=== PATIENT | male | born 1940 | race Two or more races ===

== ENCOUNTER 2016-09-07 21:22 | Inpatient (IN) | payer MEDICARE ==
[~2016-09-07] VITALS: Ht 162.6 cm; Wt 54.0 kg
[2016-09-07] MEDS ORDERED: SODIUM CHLORIDE 0.9% 1,000 ML IVB ONE (22:07)
[2016-09-07] MEDS ORDERED: ONDANSETRON HCL 4 MG/2 ML VIAL IV ONE (22:15)
[2016-09-07] MEDS ORDERED: PANTOPRAZOLE SODIUM 80 MG in SODIUM CHL 0.9% 60 ML IV ONE (22:15)
[2016-09-07] MEDS ORDERED: PANTOPRAZOLE SODIUM 40 MG/10 ML VIAL IV ONE (22:15)
[2016-09-07 22:27] LABS: DEFINITIVE VIEW TRANSMISSION; Hemoglobin 13.1 g/dL (13.5-17.5); Mean Corpuscular Hemoglobin 30.6 pg (28.0-32.0); Mean Corpuscular Hgb Conc. 32.6 g/dL (32.0-36.0); Mean Platelet Volume 10.3 fL (7.4-10.4); Platelet Count (auto) 154 10^3/uL (140-450); Red Cell Distribution Width 16.2 % (11.6-16.0); SUSPECT VIEW TRANSMISSION
[2016-09-07 22:42] LABS: Metamyelocytes % 0; Myelocytes % 0; Promyelocytes % 0; Reactive Lymphocytes 0; White Blood Cell 34.6 10^3/uL (4.4-10.8)
[2016-09-07] MEDS ORDERED: LACTATED RINGER'S 500 ML IV ONE (22:45)
[2016-09-07] MEDS ORDERED: LACTATED RINGER'S 1,000 ML IV ONE (22:45)
[2016-09-07 22:47] LABS: Albumin 3.2 g/dL (3.4-5.0); Alkaline Phosphatase 103 U/L (45-117); Amylase 64 U/L (25-115); Anion Gap 14 (5-15); Aspartate Aminotransferase 41 U/L (15-37); BUN/Creatinine Ratio 17.1; Bilirubin, Total 0.3 mg/dL (0.2-1.0); Blood Urea Nitrogen 24 mg/dL (7-18); Calcium 8.9 mg/dL (8.5-10.1); Carbon Dioxide 17 mmol/L (21-32); Chloride 109 mmol/L (98-107); GFR African American 63 mL/min; GFR Non-African American 52 mL/min; Glucose 136 mg/dL (74-106); Magnesium 2.7 mg/dL (1.6-2.6); Potassium 4.3 mmol/L (3.5-5.1); Sodium 140 mmol/L (136-145); Total Protein 6.6 g/dL (6.4-8.2)
[2016-09-07 22:55] LABS: INR 1.11 (0.9-1.15); Partial Thromboplastin Time 23.8 sec (22.64-33.71)
[2016-09-07 23:02] LABS: Hypersegmented Neutrophils Present; Platelet Estimate Adequate
[2016-09-07 23:03] LABS: Giant Platelets Few; Stomatocytes Few
[2016-09-07 23:24] LABS: Lactic Acid w/Reflex 4.9 mmol/L (0.4-2.0)
[2016-09-07 23:25] LABS: REFLEX LACTIC ACID YES OR NO YES
[2016-09-07 23:58] LABS: Hematocrit 34.5 % (41.0-53.0); Hemoglobin 10.9 g/dL (13.5-17.5)
[2016-09-08] VITALS (51 sets, daily range): BP systolic 68–175; BP diastolic 38–120
[2016-09-08] MEDS ORDERED: LACTATED RINGER'S 1,000 ML IV ONE (00:45)
[2016-09-08] MEDS ORDERED: NITROGLYCERIN 0.4 MG SL TAB SL PRN (02:15)
[2016-09-08] MEDS ORDERED: ONDANSETRON HCL 4 MG/2 ML VIAL IV PRN (02:15)
[2016-09-08] MEDS ORDERED: PIPERACILLIN-TAZOB 3.375GM 100 ML IV ONE (02:15)
[2016-09-08] MEDS ORDERED: MORPHINE SULF INJ 2 MG/ML SYRINGE 1ML IV PRN ×2 (02:15)
[2016-09-08] MEDS ORDERED: LACTATED RINGER'S 1,000 ML IV SCH (02:15)
[2016-09-08] MEDS ORDERED: PANTOPRAZOLE SODIUM 80 MG in SODIUM CHL 0.9% 60 ML IV SCH (02:15)
[2016-09-08] MEDS ORDERED: PHENYLEPHRINE IV 250 ML IV ONE (03:23)
[2016-09-08] MEDS ORDERED: PHENYLEPHRINE INJ 20 MG in SODIUM CHL 0.9% 248 ML IV ONE (03:30)
[2016-09-08 03:40] LABS: Hematocrit 27.6 % (41.0-53.0); Hemoglobin 9.1 g/dL (13.5-17.5)
[2016-09-08 05:03] LABS: Urine Bilirubin Negative (Negative); Urine Blood Negative /uL (Negative); Urine Color Yellow (Yellow); Urine Glucose Normal (Normal); Urine Ketone Negative (Negative); Urine Nitrite Negative (Negative); Urine RBC <1 /hpf (0 - 3); Urine Urobilinogen Normal (Negative); Urine pH 5.5 (5.0-8.0)
[2016-09-08] MEDS ORDERED: OCTREOTIDE ACETATE 500 MCG in SODIUM CHL 0.9% 99 ML IV SCH ×4 (08:00)
[2016-09-08] MEDS ORDERED: NOREPINEPHRINE BITARTRATE 250 ML IV SCH (08:00)
[2016-09-08] MEDS: NOREPINEPHRINE BITARTRATE 250 ML IV SCH ×3 (08:00→16:38)
[2016-09-08] MEDS ORDERED: OCTREOTIDE ACETATE 100 MCG in SODIUM CHL 0.9% 50 ML IV ONE (08:00)
[2016-09-08] MEDS: LACTATED RINGER'S 1,000 ML IV SCH ×2 (08:38→17:48)
[2016-09-08] MEDS: PIPERACILLIN-TAZOB 2.25GM 50 ML IV SCH ×3 (09:03→17:47)
[2016-09-08] MEDS: PANTOPRAZOLE SODIUM 80 MG in SODIUM CHL 0.9% 60 ML IV SCH ×2 (10:00→19:30)
[2016-09-08] MEDS ORDERED: diphenhdrAMINE HCL 50 MG/1 ML VL ONE (10:31)
[2016-09-08] MEDS ORDERED: FLUMAZENIL 0.1 MG/ML INJ 10ML MDV IV ONE (10:31)
[2016-09-08] MEDS ORDERED: NALOXONE HCL 0.4 MG/ML VIAL ONE (10:31)
[2016-09-08] MEDS ORDERED: EPINEPHrine HCL 1 MG/10 ML SYRG ONE (10:31)
[2016-09-08] MEDS ORDERED: BENZOCAINE (DENTAL) 20 % SPRAY 60ML MT ONE (10:31)
[2016-09-08] MEDS ORDERED: LIDOCAINE VISCOUS 2% 15ML UD ONE (10:31)
[2016-09-08] MEDS ORDERED: MIDAZOLAM HCL 5 MG/ML-1ML VIAL ONE (10:31)
[2016-09-08] MEDS ORDERED: SODIUM CHLORIDE LOCK 0 ML ONE (10:31)
[2016-09-08] MEDS ORDERED: fentaNYL CITRATE 100 MCG/2 ML VL ONE (10:32)
[2016-09-08] MEDS ORDERED: SODIUM CHLORIDE LOCK 10 ML ONE (10:32)
[2016-09-08 11:51] LABS: DEFINITIVE VIEW TRANSMISSION; Hematocrit 23.5 % (41.0-53.0); Hemoglobin 7.7 g/dL (13.5-17.5); Mean Corpuscular Hemoglobin 29.5 pg (28.0-32.0); Mean Corpuscular Hgb Conc. 32.8 g/dL (32.0-36.0); Mean Corpuscular Volume 89.9 fL (80.0-100.0); Mean Platelet Volume 10.3 fL (7.4-10.4); Platelet Count (auto) 67 10^3/uL (140-450); Red Cell Distribution Width 17.2 % (11.6-16.0); SUSPECT VIEW TRANSMISSION; White Blood Cell 17.3 10^3/uL (4.4-10.8)
[2016-09-08] MEDS ORDERED: METOCLOPRAMIDE HCL 5MG/ml INJ 2ml VIAL ONE (12:23)
[2016-09-08] MEDS ORDERED: VASOPRESSIN 50 UNITS in SODIUM CHL 0.9% 247.5 ML IV SCH (12:30)
[2016-09-08] MEDS ORDERED: METOCLOPRAMIDE HCL 5MG/ml INJ 2ml VIAL IV ONE (12:30)
[2016-09-08] MEDS: VASOPRESSIN 50 UNITS in SODIUM CHL 0.9% 247.5 ML IV SCH (12:45)
[2016-09-08 12:53] LABS: Metamyelocytes % 0; Myelocytes % 0; Promyelocytes % 0; Reactive Lymphocytes 0
[2016-09-08 13:43] LABS: Burr Cells FEW; Giant Platelets Few; Ovalocytes FEW; Platelet Estimate Decreased
[2016-09-08 14:35] LABS: REFLEX LACTIC ACID YES OR NO NO
[2016-09-08] MEDS ORDERED: ATOR20TA50 PO (16:29)
[2016-09-08] MEDS ORDERED: CLOP75TA28 PO (16:29)
[2016-09-08 17:59] LABS: Hematocrit 21.6 % (41.0-53.0); Hemoglobin 7.2 g/dL (13.5-17.5)
[2016-09-08 18:13] LABS: Calcium 7.1 mg/dL (8.5-10.1); Potassium 4.9 mmol/L (3.5-5.1)
[2016-09-09] VITALS (90 sets, daily range): BP systolic 82–165; BP diastolic 31–99
[2016-09-09] MEDS: NOREPINEPHRINE BITARTRATE 250 ML IV SCH ×3 (00:09→21:59)
[2016-09-09] MEDS: PIPERACILLIN-TAZOB 2.25GM 50 ML IV SCH ×4 (00:12→18:00)
[2016-09-09] MEDS ORDERED: LACTATED RINGER'S 1,000 ML IV SCH (02:15)
[2016-09-09 02:41] LABS: DEFINITIVE VIEW TRANSMISSION; Hematocrit 31.2 % (41.0-53.0); Hemoglobin 10.4 g/dL (13.5-17.5); Mean Corpuscular Hemoglobin 29.7 pg (28.0-32.0); Mean Corpuscular Hgb Conc. 33.5 g/dL (32.0-36.0); Mean Corpuscular Volume 88.8 fL (80.0-100.0); Mean Platelet Volume 9.9 fL (7.4-10.4); Red Cell Distribution Width 16.4 % (11.6-16.0); SUSPECT VIEW TRANSMISSION; White Blood Cell 23.3 10^3/uL (4.4-10.8)
[2016-09-09 02:45] LABS: Platelet Count (auto) 140 10^3/uL (140-450)
[2016-09-09 02:46] LABS: Metamyelocytes % 0; Myelocytes % 0; Promyelocytes % 0; Reactive Lymphocytes 0
[2016-09-09 03:10] LABS: BUN/Creatinine Ratio 15.9; Bilirubin, Total 1.1 mg/dL (0.2-1.0); Calcium 7.1 mg/dL (8.5-10.1); Potassium 4.8 mmol/L (3.5-5.1); Total Protein 4.1 g/dL (6.4-8.2)
[2016-09-09 03:11] LABS: Albumin 2.2 g/dL (3.4-5.0)
[2016-09-09 03:20] LABS: Platelet Estimate Adequate
[2016-09-09 03:21] LABS: Giant Platelets Few
[2016-09-09] MEDS: PANTOPRAZOLE SODIUM 80 MG in SODIUM CHL 0.9% 60 ML IV SCH (05:45)
[2016-09-09] MEDS ORDERED: VANCOMYCIN PER PHARMACY 0 MG IV SCH (09:00)
[2016-09-09] MEDS: VANCOMYCIN 1GM/250ML D5W 250 ML IV SCH (10:34)
[2016-09-09] MEDS: LACTATED RINGER'S 1,000 ML IV SCH ×2 (10:35→21:58)
[2016-09-09] MEDS: VASOPRESSIN 50 UNITS in SODIUM CHL 0.9% 247.5 ML IV SCH (10:35)
[2016-09-09] MEDS ORDERED: TAMSULOSIN HYDROCHLORIDE 0.4 MG CAP PO ONE (13:15)
[2016-09-09] MEDS: HYDROmorphone HCL 2 MG/ML VL IV PRN ×3 (13:59→20:44)
[2016-09-09] MEDS ORDERED: HYDROmorphone HCL 2 MG/ML VL ONE (15:32)
[2016-09-09] MEDS ORDERED: HYDROmorphone HCL 2 MG/ML VL IV ONE (15:45)
[2016-09-09] MEDS: TAMSULOSIN HYDROCHLORIDE 0.4 MG CAP PO SCH (18:00)
[2016-09-09] MEDS: PANTOPRAZOLE SODIUM 40 MG/10 ML VIAL IV SCH (21:58)
[2016-09-10] VITALS (86 sets, daily range): BP systolic 82–123; BP diastolic 37–92
[2016-09-10] MEDS: PIPERACILLIN-TAZOB 2.25GM 50 ML IV SCH ×5 (00:02→23:59)
[2016-09-10] MEDS: HYDROmorphone HCL 2 MG/ML VL IV PRN ×4 (02:54→20:39)
[2016-09-10 05:48] LABS: DEFINITIVE VIEW TRANSMISSION; Hematocrit 25.3 % (41.0-53.0); Hemoglobin 8.6 g/dL (13.5-17.5); Mean Corpuscular Hemoglobin 30.1 pg (28.0-32.0); Mean Corpuscular Hgb Conc. 33.8 g/dL (32.0-36.0); Mean Platelet Volume 9.5 fL (7.4-10.4); Platelet Count (auto) 88 10^3/uL (140-450); Red Cell Distribution Width 16.2 % (11.6-16.0); SUSPECT VIEW TRANSMISSION; White Blood Cell 15.9 10^3/uL (4.4-10.8)
[2016-09-10 05:53] LABS: Metamyelocytes % 0; Myelocytes % 0; Promyelocytes % 0; Reactive Lymphocytes 0
[2016-09-10 06:03] LABS: BUN/Creatinine Ratio 11.8; Calcium 7.7 mg/dL (8.5-10.1)
[2016-09-10 06:06] LABS: Bilirubin, Total 0.5 mg/dL (0.2-1.0); Total Protein 4.1 g/dL (6.4-8.2)
[2016-09-10 06:43] LABS: Platelet Estimate Decreased
[2016-09-10 06:48] LABS: Basophilic Stippling FEW
[2016-09-10 06:49] LABS: Ovalocytes FEW; Stomatocytes Few
[2016-09-10 06:50] LABS: Giant Platelets Few; Large Platelets FEW
[2016-09-10] MEDS: LACTATED RINGER'S 1,000 ML IV SCH (08:07)
[2016-09-10] MEDS: NOREPINEPHRINE BITARTRATE 250 ML IV SCH (08:52)
[2016-09-10] MEDS: VANCOMYCIN 1GM/250ML D5W 250 ML IV SCH (10:52)
[2016-09-10] MEDS: PANTOPRAZOLE SODIUM 40 MG/10 ML VIAL IV SCH ×2 (10:52→20:41)
[2016-09-10] MEDS ORDERED: HYDROmorphone HCL 2 MG/ML VL IV ONE (15:00)
[2016-09-10 15:33] LABS: Hematocrit 25.9 % (41.0-53.0); Hemoglobin 8.5 g/dL (13.5-17.5)
[2016-09-10] MEDS ORDERED: ALBUMIN 25% 50 ML IV ONE (15:45)
[2016-09-10] MEDS: TAMSULOSIN HYDROCHLORIDE 0.4 MG CAP PO SCH (18:11)
[2016-09-10] MEDS: HYDROcodone-ACET 5/325MG TAB PO PRN (18:11)
[2016-09-11] VITALS (63 sets, daily range): BP systolic 89–130; BP diastolic 38–63
[2016-09-11] MEDS: NOREPINEPHRINE BITARTRATE 250 ML IV SCH (00:01)
[2016-09-11] MEDS ORDERED: LACTATED RINGER'S 1,000 ML IV SCH (02:15)
[2016-09-11] MEDS: HYDROcodone-ACET 5/325MG TAB PO PRN ×2 (02:18→08:59)
[2016-09-11 04:08] LABS: DEFINITIVE VIEW TRANSMISSION; Hematocrit 24.6 % (41.0-53.0); Hemoglobin 8.2 g/dL (13.5-17.5); Mean Corpuscular Hemoglobin 30.1 pg (28.0-32.0); Mean Corpuscular Hgb Conc. 33.1 g/dL (32.0-36.0); Mean Corpuscular Volume 90.8 fL (80.0-100.0); Mean Platelet Volume 10.9 fL (7.4-10.4); Platelet Count (auto) 96 10^3/uL (140-450); Red Cell Distribution Width 16.3 % (11.6-16.0); SUSPECT VIEW TRANSMISSION; White Blood Cell 9.2 10^3/uL (4.4-10.8)
[2016-09-11 04:26] LABS: Albumin 2.1 g/dL (3.4-5.0); BUN/Creatinine Ratio 5.9; Calcium 7.6 mg/dL (8.5-10.1); Potassium 3.6 mmol/L (3.5-5.1)
[2016-09-11 04:28] LABS: Metamyelocytes % 0; Myelocytes % 0; Promyelocytes % 0; Reactive Lymphocytes 0
[2016-09-11 04:32] LABS: Bilirubin, Total 0.5 mg/dL (0.2-1.0); Total Protein 4.4 g/dL (6.4-8.2)
[2016-09-11] MEDS: PIPERACILLIN-TAZOB 2.25GM 50 ML IV SCH ×3 (04:51→17:48)
[2016-09-11 05:11] LABS: Burr Cells FEW; Hypersegmented Neutrophils Present; Ovalocytes FEW; Platelet Estimate Decreased
[2016-09-11 05:12] LABS: Anisocytosis Moderate
[2016-09-11] MEDS: VANCOMYCIN 1GM/250ML D5W 250 ML IV SCH (10:39)
[2016-09-11] MEDS: PANTOPRAZOLE SODIUM 40 MG/10 ML VIAL IV SCH ×2 (10:39→22:47)
[2016-09-11] MEDS ORDERED: ALBUTEROL SULF 2.5 MG/0.5ML(0.5%) NEB SOLN NEB PRN (11:00)
[2016-09-11] MEDS ORDERED: ALBUTEROL SULF 2.5 MG/0.5ML(0.5%) NEB SOLN ONE (11:05)
[2016-09-11] MEDS: HYDROmorphone HCL 2 MG/ML VL IV PRN ×3 (11:37→20:45)
[2016-09-11] MEDS ORDERED: FUROSEMIDE 20 MG/2 ML VIAL ONE (14:23)
[2016-09-11] MEDS: TAMSULOSIN HYDROCHLORIDE 0.4 MG CAP PO SCH (17:49)
[2016-09-12] VITALS (7 sets, daily range): BP systolic 102–132; BP diastolic 56–74
[2016-09-12] MEDS: PIPERACILLIN-TAZOB 2.25GM 50 ML IV SCH ×4 (00:24→18:37)
[2016-09-12] MEDS: HYDROmorphone HCL 2 MG/ML VL IV PRN ×4 (01:18→21:13)
[2016-09-12 05:31] LABS: DEFINITIVE VIEW TRANSMISSION; Hematocrit 25.2 % (41.0-53.0); Hemoglobin 8.4 g/dL (13.5-17.5); Mean Corpuscular Hemoglobin 29.6 pg (28.0-32.0); Mean Corpuscular Hgb Conc. 33.3 g/dL (32.0-36.0); Mean Corpuscular Volume 89.1 fL (80.0-100.0); Mean Platelet Volume 9.4 fL (7.4-10.4); Platelet Count (auto) 108 10^3/uL (140-450); Red Cell Distribution Width 15.8 % (11.6-16.0); SUSPECT VIEW TRANSMISSION; White Blood Cell 6.2 10^3/uL (4.4-10.8)
[2016-09-12 05:41] LABS: Metamyelocytes % 0; Myelocytes % 0; Promyelocytes % 0; Reactive Lymphocytes 0
[2016-09-12 05:52] LABS: Potassium 3.4 mmol/L (3.5-5.1)
[2016-09-12 05:56] LABS: Albumin 2.1 g/dL (3.4-5.0); BUN/Creatinine Ratio 3.5; Calcium 7.9 mg/dL (8.5-10.1)
[2016-09-12 06:00] LABS: Bilirubin, Total 0.6 mg/dL (0.2-1.0); Total Protein 4.5 g/dL (6.4-8.2)
[2016-09-12 06:02] LABS: Hypersegmented Neutrophils Present
[2016-09-12 06:03] LABS: Anisocytosis Moderate; Large Platelets FEW; Platelet Estimate Decrea
[2016-09-12 06:05] LABS: Ovalocytes FEW
[2016-09-12] MEDS: PANTOPRAZOLE SODIUM 40 MG/10 ML VIAL IV SCH (09:45)
[2016-09-12] MEDS ORDERED: FUROSEMIDE 20 MG/2 ML VIAL IV SCH (10:00)
[2016-09-12] MEDS ORDERED: PANTOPRAZOLE 40 MG TAB PO ONE (12:00)
[2016-09-12] MEDS: TAMSULOSIN HYDROCHLORIDE 0.4 MG CAP PO SCH (18:37)
[2016-09-12] MEDS: PANTOPRAZOLE 40 MG TAB PO SCH (22:44)
[2016-09-13] VITALS: BP 122/65
[2016-09-13] MEDS: PIPERACILLIN-TAZOB 2.25GM 50 ML IV SCH ×3 (00:15→11:27)
[2016-09-13 04:00] VITALS: BP 107/61
[2016-09-13] MEDS: HYDROmorphone HCL 2 MG/ML VL IV PRN (06:24)
[2016-09-13 07:55] VITALS: BP 118/22
[2016-09-13] MEDS: PANTOPRAZOLE 40 MG TAB PO SCH (10:21)
[2016-09-13 11:00] VITALS: BP 118/72
[2016-09-13 11:56] VITALS: BP 121/65
== END 2016-09-13 15:45 | disposition home or self-care (01) | DRG 380 ==
LOC: ER 21:30 → TELE 21:31 → ICU WEST 09-08 09:15 → DOU IN ICU 09-11 18:22
PROVIDERS: ADMIT Nurse Practitioner; ATTEND Internal Medicine
PROC: 02HV33Z Insertion of Infusion Device into Superior Vena Cava, Percutaneous Approach (ICD-10-PCS; 2016-09-07)
PROC: 0DJ68ZZ Inspection of Stomach, Via Natural or Artificial Opening Endoscopic (ICD-10-PCS; 2016-09-08)
PROC: 0W3P8ZZ Control Bleeding in Gastrointestinal Tract, Via Natural or Artificial Opening Endoscopic (ICD-10-PCS; 2016-09-08)
PROC: 30233R1 Transfusion of Nonautologous Platelets into Peripheral Vein, Percutaneous Approach (ICD-10-PCS; 2016-09-08)
PROC: 30233N1 Transfusion of Nonautologous Red Blood Cells into Peripheral Vein, Percutaneous Approach (ICD-10-PCS; 2016-09-08)
PROC: 02HV33Z Insertion of Infusion Device into Superior Vena Cava, Percutaneous Approach (ICD-10-PCS; 2016-09-08)
PROC: 3E0G8GC Introduction of Other Therapeutic Substance into Upper GI, Via Natural or Artificial Opening Endoscopic (ICD-10-PCS; principal; 2016-09-08 09:45)
DX: K22.11 Ulcer of esophagus with bleeding (principal); N17.0 Acute kidney failure with tubular necrosis; R57.1 Hypovolemic shock; J98.11 Atelectasis; E44.0 Moderate protein-calorie malnutrition; R65.10 Systemic inflammatory response syndrome (SIRS) of non-infectious origin without acute organ dysfunction; D72.829 Elevated white blood cell count, unspecified; D69.6 Thrombocytopenia, unspecified; N13.9 Obstructive and reflux uropathy, unspecified; N40.1 Benign prostatic hyperplasia with lower urinary tract symptoms
CPT/HCPCS: 36415; 36430; 36600; 71010; 74176; 80048; 80053; 81001; 82150; 82805; 83605; 83690; 83735; 84484; 85007; 85014; 85018; 85027; 85610; 85730; 86850; 86900; 86901; 86920; 87040; 87081; 93005; 96361; 96365; 96366; 96367; 96368; 96375; 99291; C9113; J2250; J2405; J2543; J3490

== ENCOUNTER → 2016-12-15 | Day surgery (SDC) | payer MEDICARE ==
[2016-12-11 12:22] LABS: INR 1.05 (0.9-1.15); Partial Thromboplastin Time 31.5 sec (22.64-33.71); Prothrombin Time 11.4 sec (9.37-12.3)
[2016-12-11 12:25] LABS: Basophils # (auto) 0 uL; Basophils % (auto) 0.5 % (0.0-2.0); CONDITION Y; Eosinophils # (auto) 0.1 uL; Eosinophils % (auto) 1.2 % (0.0-7.0); Hematocrit 39.9 % (41.0-53.0); Hemoglobin 13.1 g/dL (13.5-17.5); Lymphocytes # (auto) 1.3 uL; Lymphocytes % (auto) 22.7 % (10.0-50.0); Mean Corpuscular Hemoglobin 30.3 pg (28.0-32.0); Mean Corpuscular Hgb Conc. 32.8 g/dL (32.0-36.0); Mean Corpuscular Volume 92.4 fL (80.0-100.0); Monocytes # (auto) 0.6 uL; Monocytes % (auto) 9.8 % (0.0-12.0); Neutrophils # (auto) 3.8 uL; Neutrophils % (auto) 65.8 % (37.0-80.0); Platelet Count (auto) 163 10^3/uL (140-450); Red Cell Distribution Width 17.2 % (11.6-16.0); SUSPECT SEE PRINTOUT; White Blood Cell 5.8 10^3/uL (4.4-10.8)
[~2016-12-15] VITALS: Ht 162.6 cm; Wt 46.3 kg
[~2016-12-15] MED LIST: LIDOCAINE VISCOUS 2% 15ML UD ONE; MIDAZOLAM HCL 5 MG/ML-1ML VIAL ONE; PANT40TA2 PO; SODIUM CHLORIDE LOCK 10 ML ONE; diphenhdrAMINE HCL 50 MG/1 ML VL ONE; fentaNYL CITRATE 100 MCG/2 ML VL ONE
[2016-12-15 11:14] VITALS: BP 119/64
== END | disposition home or self-care (01) ==
LOC: GI 08:57
PROVIDERS: ATTEND Internal Medicine Gastroenterology
DX: K44.9 Diaphragmatic hernia without obstruction or gangrene (principal); F17.210 Nicotine dependence, cigarettes, uncomplicated
CPT/HCPCS: 36415; 43239; 43248; 85025; 85610; 85730; J2250; J3010; J7030

== ENCOUNTER 2016-12-18 12:55 | Inpatient (IN) | payer MEDICARE ==
[2016-12-18] VITALS (10 sets, daily range): BP systolic 91–106; BP diastolic 36–62
[~2016-12-18] VITALS: Ht 165.1 cm; Wt 48.9 kg
[~2016-12-18 12:55] MED LIST changes: -LIDOCAINE VISCOUS 2% 15ML UD ONE; -MIDAZOLAM HCL 5 MG/ML-1ML VIAL ONE; -SODIUM CHLORIDE LOCK 10 ML ONE; -diphenhdrAMINE HCL 50 MG/1 ML VL ONE; -fentaNYL CITRATE 100 MCG/2 ML VL ONE
[2016-12-18] MEDS ORDERED: SODIUM CHLORIDE 0.9% 1,000 ML IV ONE ×4 (13:30→15:30)
[2016-12-18] MEDS ORDERED: ALBUTEROL SULF 2.5 MG/0.5ML(0.5%) NEB SOLN NEB ONE (13:30)
[2016-12-18] MEDS ORDERED: PANTOPRAZOLE 40 MG/10 ML VIAL IV ONE (13:30)
[2016-12-18] MEDS ORDERED: IPRATROPIUM BROM 0.5 MG/2.5ML INH SOL NEB ONE (13:30)
[2016-12-18 14:15] LABS: Basophils # (auto) 0 uL; Basophils % (auto) 0.2 % (0.0-2.0); CONDITION Y; Eosinophils # (auto) 0 uL; Eosinophils % (auto) 0.1 % (0.0-7.0); Hematocrit 26.7 % (41.0-53.0); Hemoglobin 8.9 g/dL (13.5-17.5); Lymphocytes # (auto) 0.9 uL; Lymphocytes % (auto) 6.1 % (10.0-50.0); Mean Corpuscular Hemoglobin 30.4 pg (28.0-32.0); Mean Corpuscular Hgb Conc. 33.1 g/dL (32.0-36.0); Mean Corpuscular Volume 91.6 fL (80.0-100.0); Mean Platelet Volume 10.3 fL (7.4-10.4); Monocytes # (auto) 0.6 uL; Monocytes % (auto) 4.4 % (0.0-12.0); Neutrophils # (auto) 13.3 uL; Neutrophils % (auto) 89.2 % (37.0-80.0); Platelet Count (auto) 182 10^3/uL (140-450); SUSPECT SEE PRINTOUT; White Blood Cell 14.9 10^3/uL (4.4-10.8)
[2016-12-18 14:26] LABS: INR 1.08 (0.9-1.15); Partial Thromboplastin Time 23.5 sec (22.64-33.71); Prothrombin Time 11.8 sec (9.37-12.3)
[2016-12-18 14:34] LABS: Albumin 2.7 g/dL (3.4-5.0); Alkaline Phosphatase 74 U/L (45-117); Anion Gap 9 (5-15); Aspartate Aminotransferase 14 U/L (15-37); BUN/Creatinine Ratio 45.8; Bilirubin, Total 0.3 mg/dL (0.2-1.0); Blood Urea Nitrogen 55 mg/dL (7-18); Carbon Dioxide 23 mmol/L (21-32); Chloride 111 mmol/L (98-107); GFR African American 76 mL/min; GFR Non-African American 63 mL/min; Glucose 103 mg/dL (74-106); Potassium 4.3 mmol/L (3.5-5.1); Sodium 143 mmol/L (136-145); Total Protein 5.9 g/dL (6.4-8.2)
[2016-12-18 14:37] LABS: B-Type Natriuretic Peptide 20.36 pg/mL (0-100)
[2016-12-18] MEDS ORDERED: cefTRIAXone 1GM/50ML D5W 50 ML IV ONE (14:45)
[2016-12-18 14:47] LABS: Temperature: 21.9 C (20.0-25.0)
[2016-12-18] MEDS ORDERED: AZITHROMYCIN 500MG/D5W 250ML 250 ML IV ONE ×2 (15:00)
[2016-12-18] MEDS ORDERED: PANTOPRAZOLE 80 MG in SODIUM CHL 0.9% 60 ML IV SCH (15:15)
[2016-12-18] MEDS ORDERED: NITROGLYCERIN 0.4 MG SL TAB SL PRN (15:15)
[2016-12-18] MEDS ORDERED: MORPHINE SULF INJ 2 MG/ML SYRINGE 1ML IV PRN (15:15)
[2016-12-18] MEDS ORDERED: ONDANSETRON HCL 4 MG/2 ML VIAL IV ONE (15:45)
[2016-12-18] MEDS ORDERED: HYDROmorphone HCL 2 MG/ML VL IV ONE (16:15)
[2016-12-18] MEDS ORDERED: LIDOCAINE 1% HCL (LOCAL ANESTH.) INJ 20ML MDV ONE (16:16)
[2016-12-18] MEDS ORDERED: ALBUTEROL SULF 2.5 MG/0.5ML(0.5%) NEB SOLN NEB PRN (16:30)
[2016-12-18] MEDS ORDERED: LIDOCAINE 1% HCL (LOCAL ANESTH.) INJ 20ML MDV IJ ONE (16:45)
[2016-12-18] MEDS: NOREPINEPHRINE BITARTRATE 250 ML IV SCH (18:03)
[2016-12-18] MEDS: IPRATROPIUM BROM 0.5 MG/2.5ML INH SOL NEB SCH (18:45)
[2016-12-18] MEDS: ALBUTEROL SULF 2.5 MG/0.5ML(0.5%) NEB SOLN NEB SCH (18:46)
[2016-12-18 19:00] LABS: Hematocrit 21.2 % (41.0-53.0)
[2016-12-18 19:24] LABS: Hemoglobin 6.8 g/dL (13.5-17.5)
[2016-12-18 19:50] LABS: Urine RBC None Seen /hpf (0 - 3)
[2016-12-18 20:08] LABS: Urine Bilirubin Negative (Negative); Urine Blood Negative /uL (Negative); Urine Color Yellow (Yellow); Urine Glucose Normal (Normal); Urine Ketone Negative (Negative); Urine Nitrite Negative (Negative); Urine Squamous Epithelial Cell FEW /hpf (<5); Urine Urobilinogen Normal (Negative)
[2016-12-18] MEDS: PANTOPRAZOLE 40 MG/10 ML VIAL IV SCH (22:06)
[2016-12-18] MEDS: MORPHINE SULFATE 4 MG/ML SYRG IV PRN (22:06)
[2016-12-19] VITALS (73 sets, daily range): BP systolic 90–159; BP diastolic 41–94
[2016-12-19] MEDS: NOREPINEPHRINE BITARTRATE 250 ML IV SCH ×2 (00:04→05:24)
[2016-12-19] MEDS: IPRATROPIUM BROM 0.5 MG/2.5ML INH SOL NEB SCH ×4 (00:59→18:35)
[2016-12-19] MEDS: ALBUTEROL SULF 2.5 MG/0.5ML(0.5%) NEB SOLN NEB SCH ×4 (00:59→18:35)
[2016-12-19 01:23] LABS: Hematocrit 19.7 % (41.0-53.0)
[2016-12-19 01:28] LABS: Hemoglobin 6.3 g/dL (13.5-17.5)
[2016-12-19] MEDS: MORPHINE SULFATE 4 MG/ML SYRG IV PRN ×3 (02:14→11:59)
[2016-12-19] MEDS ORDERED: SODIUM CHLORIDE LOCK 10 ML ONE (07:55)
[2016-12-19] MEDS ORDERED: MIDAZOLAM HCL 5 MG/ML-1ML VIAL ONE (07:56)
[2016-12-19] MEDS ORDERED: diphenhdrAMINE HCL 50 MG/1 ML VL ONE (07:56)
[2016-12-19] MEDS ORDERED: LIDOCAINE VISCOUS 2% 15ML UD ONE (07:56)
[2016-12-19] MEDS ORDERED: fentaNYL CITRATE 100 MCG/2 ML VL ONE (07:56)
[2016-12-19] MEDS: PANTOPRAZOLE 40 MG/10 ML VIAL IV SCH ×2 (10:24→22:07)
[2016-12-19] MEDS: cefTRIAXone 1GM/50ML D5W 50 ML IV SCH (13:59)
[2016-12-19 14:32] LABS: CONDITION Y; DEFINITIVE SEE PRINTOUT; Hematocrit 29.3 % (41.0-53.0); Hemoglobin 9.8 g/dL (13.5-17.5); Mean Corpuscular Hgb Conc. 33.3 g/dL (32.0-36.0); Mean Corpuscular Volume 90.1 fL (80.0-100.0); Mean Platelet Volume 9.9 fL (7.4-10.4); Platelet Count (auto) 112 10^3/uL (140-450); Red Cell Distribution Width 16.6 % (11.6-16.0); SUSPECT SEE PRINTOUT; White Blood Cell 22.5 10^3/uL (4.4-10.8)
[2016-12-19 14:49] LABS: BUN/Creatinine Ratio 37.6; Potassium 4.9 mmol/L (3.5-5.1)
[2016-12-19 14:53] LABS: Metamyelocytes % 0; Myelocytes % 0; Promyelocytes % 0; Reactive Lymphocytes 0
[2016-12-19] MEDS: AZITHROMYCIN 500MG/D5W 250ML 250 ML IV SCH (15:30)
[2016-12-19 15:46] LABS: Platelet Estimate Decreased
[2016-12-19 15:47] LABS: Anisocytosis Slight; Burr Cells FEW; Giant Platelets Few
[2016-12-19] MEDS: MORPHINE SULF INJ 2 MG/ML SYRINGE 1ML IV PRN ×2 (18:55→23:04)
[2016-12-19] MEDS ORDERED: KETOROLAC TROMETH 30 MG/ML 1ML VIAL IV NR (21:00)
[2016-12-19] MEDS ORDERED: HYDROmorphone HCL 2 MG/ML VL IV ONE (23:15)
[2016-12-20] VITALS (27 sets, daily range): BP systolic 86–133; BP diastolic 38–73
[2016-12-20] MEDS: IPRATROPIUM BROM 0.5 MG/2.5ML INH SOL NEB SCH ×4 (00:27→19:23)
[2016-12-20] MEDS: ALBUTEROL SULF 2.5 MG/0.5ML(0.5%) NEB SOLN NEB SCH ×4 (00:27→19:23)
[2016-12-20] MEDS: MORPHINE SULF INJ 2 MG/ML SYRINGE 1ML IV PRN ×5 (03:51→20:24)
[2016-12-20 03:52] LABS: Basophils # (auto) 0 uL; Basophils % (auto) 0.1 % (0.0-2.0); CONDITION Y; DEFINITIVE SEE PRINTOUT; Eosinophils # (auto) 0.1 uL; Eosinophils % (auto) 0.3 % (0.0-7.0); Hematocrit 26.7 % (41.0-53.0); Hemoglobin 8.9 g/dL (13.5-17.5); Lymphocytes # (auto) 1.1 uL; Lymphocytes % (auto) 6.2 % (10.0-50.0); Mean Corpuscular Hemoglobin 30.4 pg (28.0-32.0); Mean Corpuscular Hgb Conc. 33.2 g/dL (32.0-36.0); Mean Corpuscular Volume 91.4 fL (80.0-100.0); Mean Platelet Volume 10.1 fL (7.4-10.4); Neutrophils # (auto) 13.5 uL; Neutrophils % (auto) 76.4 % (37.0-80.0); Platelet Count (auto) 104 10^3/uL (140-450); Red Cell Distribution Width 17.5 % (11.6-16.0); SUSPECT SEE PRINTOUT; White Blood Cell 17.6 10^3/uL (4.4-10.8)
[2016-12-20 04:19] LABS: BUN/Creatinine Ratio 30.3; Calcium 7.5 mg/dL (8.5-10.1); Potassium 4.8 mmol/L (3.5-5.1)
[2016-12-20] MEDS: cefTRIAXone 1GM/50ML D5W 50 ML IV SCH (09:08)
[2016-12-20] MEDS: AZITHROMYCIN 500MG/D5W 250ML 250 ML IV SCH (10:45)
[2016-12-20] MEDS: PANTOPRAZOLE 40 MG/10 ML VIAL IV SCH ×2 (10:47→22:00)
[2016-12-20] MEDS ORDERED: NICOTINE 21MG/24 HR TOPICAL PATCH TD ONE (14:15)
[2016-12-20] MEDS ORDERED: TEMAZEPAM 15 MG CAP PO PRN (14:15)
[2016-12-20] MEDS ORDERED: ALPRAZolam 0.25 MG TAB PO PRN (14:45)
[2016-12-20] MEDS: TAMSULOSIN HYDROCHLORIDE 0.4 MG CAP PO SCH (20:24)
[2016-12-21] VITALS (50 sets, daily range): BP systolic 79–158; BP diastolic 37–105
[2016-12-21] MEDS: IPRATROPIUM BROM 0.5 MG/2.5ML INH SOL NEB SCH ×5 (01:11→23:59)
[2016-12-21] MEDS: ALBUTEROL SULF 2.5 MG/0.5ML(0.5%) NEB SOLN NEB SCH ×5 (01:11→23:59)
[2016-12-21] MEDS: MORPHINE SULF INJ 2 MG/ML SYRINGE 1ML IV PRN ×3 (02:38→08:25)
[2016-12-21 05:01] LABS: Basophils # (auto) 0 uL; Basophils % (auto) 0.3 % (0.0-2.0); CONDITION Y; DEFINITIVE SEE PRINTOUT; Eosinophils # (auto) 0.1 uL; Eosinophils % (auto) 1.2 % (0.0-7.0); Hematocrit 20.9 % (41.0-53.0); Lymphocytes % (auto) 18.6 % (10.0-50.0); Mean Corpuscular Hgb Conc. 32.9 g/dL (32.0-36.0); Mean Corpuscular Volume 90.9 fL (80.0-100.0); Mean Platelet Volume 9.9 fL (7.4-10.4); Monocytes # (auto) 0.9 uL; Monocytes % (auto) 17.7 % (0.0-12.0); Neutrophils # (auto) 3.2 uL; Neutrophils % (auto) 62.2 % (37.0-80.0); Platelet Count (auto) 85 10^3/uL (140-450); Red Cell Distribution Width 17.2 % (11.6-16.0); SUSPECT SEE PRINTOUT; White Blood Cell 5.2 10^3/uL (4.4-10.8)
[2016-12-21 05:10] LABS: Hemoglobin 6.9 g/dL (13.5-17.5)
[2016-12-21 05:37] LABS: BUN/Creatinine Ratio 23.2; Calcium 7.5 mg/dL (8.5-10.1); Potassium 4.2 mmol/L (3.5-5.1)
[2016-12-21] MEDS ORDERED: MORPHINE SULFATE 4 MG/ML SYRG ONE (08:14)
[2016-12-21] MEDS ORDERED: MIDAZOLAM HCL 5 MG/ML-1ML VIAL ONE (10:17)
[2016-12-21] MEDS ORDERED: SODIUM CHLORIDE LOCK 10 ML ONE (10:17)
[2016-12-21] MEDS ORDERED: EPINEPHrine HCL 1 MG/10 ML SYRG ONE (10:17)
[2016-12-21] MEDS ORDERED: LIDOCAINE VISCOUS 2% 15ML UD ONE (10:17)
[2016-12-21] MEDS ORDERED: diphenhdrAMINE HCL 50 MG/1 ML VL ONE (10:18)
[2016-12-21] MEDS ORDERED: fentaNYL CITRATE 100 MCG/2 ML VL ONE ×2 (10:18→11:04)
[2016-12-21] MEDS ORDERED: NALOXONE HCL 0.4 MG/ML VIAL ONE (10:19)
[2016-12-21] MEDS ORDERED: FLUMAZENIL 0.1 MG/ML INJ 10ML MDV IV ONE (10:19)
[2016-12-21] MEDS ORDERED: FUROSEMIDE 20 MG/2 ML VIAL ONE (10:57)
[2016-12-21] MEDS ORDERED: MIDAZOLAM HCL 1MG/1ML-2 ML VIAL ONE ×2 (11:04→12:11)
[2016-12-21] MEDS ORDERED: ETOMIDATE (2MG/ML) 20ML VIAL IV ONE (11:05)
[2016-12-21] MEDS ORDERED: ROCURONIUM 10MG/ML 10ML VIAL IV ONE (11:05)
[2016-12-21] MEDS ORDERED: GOLYTELY 4L KIT PO ONE (11:45)
[2016-12-21 12:21] LABS: Allen Test Modified; Blood 02Sat 94.3 % (96-100); Blood MetHb 0.3 % (0.0-1.5); HCO3 17.8 mmol/L (22-26.0); HHb 5.7 % (0.0-5.0); MODE VENT - A/C; PCO2 33.8 mmHg (35.0-45.0); PCO2(T) 33.8 mmHg (35.0-45.0); Room 0263D; Sample Type Arterial
[2016-12-21] MEDS ORDERED: MIDAZOLAM HCL 1MG/1ML-2 ML VIAL IV ONE (12:30)
[2016-12-21 12:53] LABS: Hematocrit 33.4 % (41.0-53.0); Hemoglobin 11.2 g/dL (13.5-17.5)
[2016-12-21] MEDS ORDERED: POTASSIUM CHLORIDE 40 MEQ, LIDOCAINE 1% (LOCAL ANESTH.) 4 ML in SODIUM CHL 0.9% 250 ML IV ONE (14:45)
[2016-12-21] MEDS ORDERED: FUROSEMIDE 20 MG/2 ML VIAL IV ONE (14:45)
[2016-12-21] MEDS: NICOTINE 21MG/24 HR TOPICAL PATCH TD SCH (15:34)
[2016-12-21] MEDS: cefTRIAXone 1GM/50ML D5W 50 ML IV SCH (15:34)
[2016-12-21] MEDS: PANTOPRAZOLE 40 MG/10 ML VIAL IV SCH ×2 (15:35→22:11)
[2016-12-21] MEDS ORDERED: SODIUM CHLORIDE 0.9% 500 ML IV ONE (16:15)
[2016-12-21] MEDS ORDERED: NOREPINEPHRINE BITARTRATE 250 ML IV ONE (16:19)
[2016-12-21] MEDS: NOREPINEPHRINE BITARTRATE 250 ML IV SCH (16:25)
[2016-12-21 17:18] LABS: Basophils # (auto) 0 uL; CONDITION Y; DEFINITIVE SEE PRINTOUT; Eosinophils # (auto) 0.2 uL; Eosinophils % (auto) 1.3 % (0.0-7.0); Hemoglobin 10.7 g/dL (13.5-17.5); Lymphocytes # (auto) 0.9 uL; Lymphocytes % (auto) 7.6 % (10.0-50.0); Mean Corpuscular Hemoglobin 30.3 pg (28.0-32.0); Mean Corpuscular Hgb Conc. 33.4 g/dL (32.0-36.0); Mean Corpuscular Volume 90.8 fL (80.0-100.0); Mean Platelet Volume 9.9 fL (7.4-10.4); Monocytes # (auto) 1.7 uL; Monocytes % (auto) 14.8 % (0.0-12.0); Neutrophils # (auto) 8.8 uL; Neutrophils % (auto) 76.3 % (37.0-80.0); Platelet Count (auto) 109 10^3/uL (140-450); Red Cell Distribution Width 16.6 % (11.6-16.0); SUSPECT SEE PRINTOUT; White Blood Cell 11.5 10^3/uL (4.4-10.8)
[2016-12-21] MEDS: AZITHROMYCIN 500MG/D5W 250ML 250 ML IV SCH (17:27)
[2016-12-21] MEDS: TAMSULOSIN HYDROCHLORIDE 0.4 MG CAP PO SCH (18:00)
[2016-12-21] MEDS: MIDAZOLAM DRIP 50 mg/50mL 50 ML IV SCH (21:10)
[2016-12-21 21:33] LABS: Hematocrit 32.5 % (41.0-53.0)
[2016-12-22] VITALS (105 sets, daily range): BP systolic 86–142; BP diastolic 47–81
[2016-12-22] MEDS: MORPHINE SULF INJ 2 MG/ML SYRINGE 1ML IV PRN (00:51)
[2016-12-22] MEDS: MIDAZOLAM DRIP 50 mg/50mL 50 ML IV SCH ×2 (03:09→10:49)
[2016-12-22 03:36] LABS: CONDITION Y; DEFINITIVE SEE PRINTOUT; Hematocrit 29.3 % (41.0-53.0); Hemoglobin 9.9 g/dL (13.5-17.5); Mean Corpuscular Hemoglobin 30.7 pg (28.0-32.0); Mean Corpuscular Hgb Conc. 33.8 g/dL (32.0-36.0); Mean Corpuscular Volume 90.7 fL (80.0-100.0); Mean Platelet Volume 10.2 fL (7.4-10.4); Platelet Count (auto) 199 10^3/uL (140-450); Red Cell Distribution Width 16.1 % (11.6-16.0); SUSPECT SEE PRINTOUT; White Blood Cell 11.8 10^3/uL (4.4-10.8)
[2016-12-22 04:00] LABS: BUN/Creatinine Ratio 14.1; Calcium 7.4 mg/dL (8.5-10.1); Potassium 3.6 mmol/L (3.5-5.1)
[2016-12-22 05:07] LABS: Metamyelocytes % 0; Myelocytes % 0; Promyelocytes % 0; Reactive Lymphocytes 0
[2016-12-22] MEDS: NOREPINEPHRINE BITARTRATE 250 ML IV SCH (06:11)
[2016-12-22] MEDS: ALBUTEROL SULF 2.5 MG/0.5ML(0.5%) NEB SOLN NEB SCH ×4 (06:27→23:44)
[2016-12-22] MEDS: IPRATROPIUM BROM 0.5 MG/2.5ML INH SOL NEB SCH ×4 (06:27→23:44)
[2016-12-22 06:49] LABS: Giant Platelets Few; Hypersegmented Neutrophils Present; Large Platelets FEW
[2016-12-22 06:50] LABS: Anisocytosis Slight; Platelet Estimate Adequa
[2016-12-22 08:00] LABS: Allen Test Yes; Base Excess -0.4 mmol/L (-2.0-2.0); Blood 02Sat 92.4 % (96-100); Blood MetHb 0.3 % (0.0-1.5); HCO3 23.6 mmol/L (22-26.0); HHb 7.5 % (0.0-5.0); MODE VENT - A/C; O2Hb 91.2 % (94.0-97.0); PCO2 36.3 mmHg (35.0-45.0); PCO2(T) 36.3 mmHg (35.0-45.0); Sample Type Arterial
[2016-12-22] MEDS ORDERED: SODIUM CHLORIDE LOCK 0 ML ONE (08:56)
[2016-12-22] MEDS ORDERED: diphenhdrAMINE HCL 50 MG/1 ML VL ONE (08:56)
[2016-12-22] MEDS ORDERED: MIDAZOLAM HCL 5 MG/ML-1ML VIAL ONE (08:56)
[2016-12-22] MEDS ORDERED: fentaNYL CITRATE 100 MCG/2 ML VL ONE (08:58)
[2016-12-22] MEDS: cefTRIAXone 1GM/50ML D5W 50 ML IV SCH (09:47)
[2016-12-22] MEDS: NICOTINE 21MG/24 HR TOPICAL PATCH TD SCH (09:48)
[2016-12-22] MEDS: PANTOPRAZOLE 40 MG/10 ML VIAL IV SCH ×2 (09:48→22:02)
[2016-12-22] MEDS: AZITHROMYCIN 500MG/D5W 250ML 250 ML IV SCH ×2 (10:49→11:42)
[2016-12-22] MEDS: SODIUM CHLORIDE 0.9% 1,000 ML IV SCH (13:31)
[2016-12-22] MEDS: TAMSULOSIN HYDROCHLORIDE 0.4 MG CAP PO SCH (17:50)
[2016-12-22] MEDS ORDERED: NITROGLYCERIN 2% OINT 1GM PKG TD ONE ×2 (20:34→21:30)
[2016-12-23] VITALS (76 sets, daily range): BP systolic 87–158; BP diastolic 41–111
[2016-12-23] MEDS: MORPHINE SULF INJ 2 MG/ML SYRINGE 1ML IV PRN ×4 (00:10→21:42)
[2016-12-23 04:26] LABS: Basophils # (auto) 0 uL; Basophils % (auto) 0.3 % (0.0-2.0); CONDITION Y; Eosinophils # (auto) 0.1 uL; Eosinophils % (auto) 1.1 % (0.0-7.0); Hematocrit 29.4 % (41.0-53.0); Hemoglobin 9.9 g/dL (13.5-17.5); Lymphocytes # (auto) 1.1 uL; Lymphocytes % (auto) 9.8 % (10.0-50.0); Mean Corpuscular Hemoglobin 30.7 pg (28.0-32.0); Mean Corpuscular Hgb Conc. 33.7 g/dL (32.0-36.0); Mean Corpuscular Volume 91.1 fL (80.0-100.0); Mean Platelet Volume 10.9 fL (7.4-10.4); Monocytes # (auto) 1.5 uL; Monocytes % (auto) 14.3 % (0.0-12.0); Neutrophils # (auto) 8.1 uL; Neutrophils % (auto) 74.5 % (37.0-80.0); Platelet Count (auto) 204 10^3/uL (140-450); Red Cell Distribution Width 16.6 % (11.6-16.0); SUSPECT SEE PRINTOUT; White Blood Cell 10.8 10^3/uL (4.4-10.8)
[2016-12-23 05:04] LABS: Anisocytosis Slight; Platelet Estimate Adequate
[2016-12-23 05:07] LABS: BUN/Creatinine Ratio 13.3; Potassium 3.6 mmol/L (3.5-5.1)
[2016-12-23] MEDS: MIDAZOLAM DRIP 50 mg/50mL 50 ML IV SCH (05:15)
[2016-12-23] MEDS: SODIUM CHLORIDE 0.9% 1,000 ML IV SCH ×2 (05:46→17:00)
[2016-12-23] MEDS: IPRATROPIUM BROM 0.5 MG/2.5ML INH SOL NEB SCH ×3 (06:42→18:30)
[2016-12-23] MEDS: ALBUTEROL SULF 2.5 MG/0.5ML(0.5%) NEB SOLN NEB SCH ×3 (06:42→18:30)
[2016-12-23] MEDS: cefTRIAXone 1GM/50ML D5W 50 ML IV SCH (08:40)
[2016-12-23 09:02] LABS: Allen Test Yes; Base Excess -3.2 mmol/L (-2.0-2.0); Blood 02Sat 90.7 % (96-100); Blood COHb 0.1 % (0.5-1.5); Blood MetHb 0.4 % (0.0-1.5); HCO3 20.6 mmol/L (22-26.0); HHb 9.3 % (0.0-5.0); MODE VENT - A/C; O2Hb 90.2 % (94.0-97.0); PCO2 32.5 mmHg (35.0-45.0); PCO2(T) 32.5 mmHg (35.0-45.0); PO2 62.3 mmHg (80.0-100.0); PO2(T) 62.3 mmHg (80.0-100.0); Sample Type Arterial; pH 7.419 (7.350-7.450)
[2016-12-23] MEDS: AZITHROMYCIN 500MG/D5W 250ML 250 ML IV SCH (10:45)
[2016-12-23] MEDS: PANTOPRAZOLE 40 MG/10 ML VIAL IV SCH ×2 (11:13→21:41)
[2016-12-23] MEDS: NICOTINE 21MG/24 HR TOPICAL PATCH TD SCH (11:13)
[2016-12-23] MEDS ORDERED: FUROSEMIDE 20 MG/2 ML VIAL IV ONE (14:00)
[2016-12-23] MEDS ORDERED: FUROSEMIDE 20 MG/2 ML VIAL ONE (14:01)
[2016-12-23] MEDS ORDERED: POTASSIUM CHLORIDE 40 MEQ, LIDOCAINE 1% (LOCAL ANESTH.) 4 ML in SODIUM CHL 0.9% 250 ML IV ONE (14:30)
[2016-12-23] MEDS: TAMSULOSIN HYDROCHLORIDE 0.4 MG CAP PO SCH (17:21)
[2016-12-24] VITALS (27 sets, daily range): BP systolic 101–146; BP diastolic 51–78
[2016-12-24] MEDS: ALBUTEROL SULF 2.5 MG/0.5ML(0.5%) NEB SOLN NEB SCH ×4 (00:20→19:09)
[2016-12-24] MEDS: IPRATROPIUM BROM 0.5 MG/2.5ML INH SOL NEB SCH ×4 (00:20→19:09)
[2016-12-24] MEDS: MORPHINE SULF INJ 2 MG/ML SYRINGE 1ML IV PRN ×4 (02:02→19:52)
[2016-12-24 04:20] LABS: CONDITION Y; Hematocrit 29.3 % (41.0-53.0); Hemoglobin 9.8 g/dL (13.5-17.5); Mean Corpuscular Hemoglobin 30.5 pg (28.0-32.0); Mean Corpuscular Hgb Conc. 33.3 g/dL (32.0-36.0); Mean Corpuscular Volume 91.5 fL (80.0-100.0); Mean Platelet Volume 10.3 fL (7.4-10.4); Platelet Count (auto) 236 10^3/uL (140-450); Red Cell Distribution Width 16.7 % (11.6-16.0); SUSPECT SEE PRINTOUT; White Blood Cell 8.2 10^3/uL (4.4-10.8)
[2016-12-24 04:30] LABS: BUN/Creatinine Ratio 12.5; Calcium 8.1 mg/dL (8.5-10.1); Potassium 3.3 mmol/L (3.5-5.1)
[2016-12-24 04:48] LABS: Metamyelocytes % 0; Myelocytes % 0; Promyelocytes % 0; Reactive Lymphocytes 0
[2016-12-24 04:50] LABS: Anisocytosis Slight; Platelet Estimate Adequate; Polychromasia Slight
[2016-12-24] MEDS: cefTRIAXone 1GM/50ML D5W 50 ML IV SCH (09:16)
[2016-12-24] MEDS ORDERED: LIDOCAINE 2%HCL (LOCAL ANESTH.) INJ 20ML MDV ONE (09:55)
[2016-12-24] MEDS ORDERED: POTASSIUM CHL 20 Meq TABLET PO ONE (10:15)
[2016-12-24] MEDS: PANTOPRAZOLE 40 MG/10 ML VIAL IV SCH ×2 (10:23→21:58)
[2016-12-24] MEDS: AZITHROMYCIN 500MG/D5W 250ML 250 ML IV SCH (10:24)
[2016-12-24] MEDS: ALPRAZolam 0.5 MG TAB PO PRN (11:12)
[2016-12-24] MEDS: SODIUM CHLORIDE 0.9% 1,000 ML IV SCH (17:00)
[2016-12-24] MEDS: TAMSULOSIN HYDROCHLORIDE 0.4 MG CAP PO SCH (18:23)
[2016-12-24] MEDS ORDERED: TEMAZEPAM 15 MG CAP PO ONE (22:00)
[2016-12-25] VITALS (19 sets, daily range): BP systolic 80–131; BP diastolic 44–90
[2016-12-25] MEDS: IPRATROPIUM BROM 0.5 MG/2.5ML INH SOL NEB SCH ×4 (01:11→19:10)
[2016-12-25] MEDS: ALBUTEROL SULF 2.5 MG/0.5ML(0.5%) NEB SOLN NEB SCH ×4 (01:11→19:10)
[2016-12-25] MEDS: MORPHINE SULF INJ 2 MG/ML SYRINGE 1ML IV PRN ×5 (02:30→23:06)
[2016-12-25 03:53] LABS: CONDITION Y; Hematocrit 28.3 % (41.0-53.0); Hemoglobin 9.3 g/dL (13.5-17.5); Mean Corpuscular Hemoglobin 30.2 pg (28.0-32.0); Mean Corpuscular Hgb Conc. 32.9 g/dL (32.0-36.0); Mean Corpuscular Volume 91.7 fL (80.0-100.0); Mean Platelet Volume 9.7 fL (7.4-10.4); Platelet Count (auto) 235 10^3/uL (140-450); Red Cell Distribution Width 16.6 % (11.6-16.0); SUSPECT SEE PRINTOUT; White Blood Cell 7.1 10^3/uL (4.4-10.8)
[2016-12-25 04:06] LABS: Metamyelocytes % 0; Myelocytes % 0; Promyelocytes % 0; Reactive Lymphocytes 0
[2016-12-25 04:09] LABS: BUN/Creatinine Ratio 9.4; Calcium 7.9 mg/dL (8.5-10.1); Potassium 3.6 mmol/L (3.5-5.1)
[2016-12-25 04:41] LABS: Anisocytosis Slight; Hypersegmented Neutrophils Present; Large Platelets FEW; Platelet Estimate Adequa
[2016-12-25] MEDS: SODIUM CHLORIDE 0.9% 1,000 ML IV SCH (04:44)
[2016-12-25] MEDS: cefTRIAXone 1GM/50ML D5W 50 ML IV SCH (09:12)
[2016-12-25] MEDS: ALPRAZolam 0.5 MG TAB PO PRN ×2 (09:18→20:38)
[2016-12-25] MEDS: PANTOPRAZOLE 40 MG/10 ML VIAL IV SCH ×2 (10:00→21:30)
[2016-12-25] MEDS: AZITHROMYCIN 500MG/D5W 250ML 250 ML IV SCH (10:01)
[2016-12-25] MEDS ORDERED: AZITHROMYCIN 250 MG TAB PO ONE (12:30)
[2016-12-25] MEDS: TAMSULOSIN HYDROCHLORIDE 0.4 MG CAP PO SCH (17:06)
[2016-12-26] MEDS: ALBUTEROL SULF 2.5 MG/0.5ML(0.5%) NEB SOLN NEB SCH ×4 (01:24→19:04)
[2016-12-26] MEDS: IPRATROPIUM BROM 0.5 MG/2.5ML INH SOL NEB SCH ×4 (01:24→19:04)
[2016-12-26 05:30] VITALS: BP 118/68
[2016-12-26] MEDS: MORPHINE SULF INJ 2 MG/ML SYRINGE 1ML IV PRN ×5 (06:36→20:23)
[2016-12-26 06:59] LABS: CONDITION Y; Hematocrit 30.7 % (41.0-53.0); Hemoglobin 9.9 g/dL (13.5-17.5); Mean Corpuscular Hemoglobin 30.1 pg (28.0-32.0); Mean Corpuscular Hgb Conc. 32.3 g/dL (32.0-36.0); Mean Corpuscular Volume 93.4 fL (80.0-100.0); Platelet Count (auto) 256 10^3/uL (140-450); Red Cell Distribution Width 16.8 % (11.6-16.0); SUSPECT SEE PRINTOUT; White Blood Cell 6.2 10^3/uL (4.4-10.8)
[2016-12-26 07:07] LABS: Metamyelocytes % 0; Myelocytes % 0; Promyelocytes % 0; Reactive Lymphocytes 0
[2016-12-26 08:28] LABS: Burr Cells FEW; Large Platelets FEW; Platelet Estimate Adequate
[2016-12-26 08:29] LABS: Anisocytosis Slight
[2016-12-26 09:06] VITALS: BP 106/64
[2016-12-26] MEDS: cefTRIAXone 1GM/50ML D5W 50 ML IV SCH (09:26)
[2016-12-26] MEDS: PANTOPRAZOLE 40 MG/10 ML VIAL IV SCH (09:49)
[2016-12-26] MEDS: AZITHROMYCIN 250 MG TAB PO SCH (09:49)
[2016-12-26] MEDS: ALPRAZolam 0.5 MG TAB PO PRN ×2 (12:49→23:16)
[2016-12-26 13:00] VITALS: BP 117/61
[2016-12-26 17:23] VITALS: BP 112/71
[2016-12-26] MEDS: TAMSULOSIN HYDROCHLORIDE 0.4 MG CAP PO SCH (18:34)
[2016-12-26] MEDS: PANTOPRAZOLE 40 MG TAB PO SCH (20:22)
[2016-12-26 22:00] VITALS: BP 96/58
[2016-12-27] MEDS: MORPHINE SULF INJ 2 MG/ML SYRINGE 1ML IV PRN ×4 (00:36→20:15)
[2016-12-27] MEDS: IPRATROPIUM BROM 0.5 MG/2.5ML INH SOL NEB SCH ×4 (01:03→19:34)
[2016-12-27] MEDS: ALBUTEROL SULF 2.5 MG/0.5ML(0.5%) NEB SOLN NEB SCH ×4 (01:03→19:35)
[2016-12-27 05:25] VITALS: BP 100/56
[2016-12-27 05:57] LABS: Basophils # (auto) 0 uL; Basophils % (auto) 0.1 % (0.0-2.0); CONDITION Y; Eosinophils # (auto) 0.1 uL; Eosinophils % (auto) 2.1 % (0.0-7.0); Hematocrit 30.7 % (41.0-53.0); Hemoglobin 10.2 g/dL (13.5-17.5); Lymphocytes % (auto) 17.2 % (10.0-50.0); Mean Corpuscular Hemoglobin 30.5 pg (28.0-32.0); Mean Corpuscular Hgb Conc. 33.3 g/dL (32.0-36.0); Mean Corpuscular Volume 91.6 fL (80.0-100.0); Mean Platelet Volume 9.9 fL (7.4-10.4); Monocytes # (auto) 0.8 uL; Monocytes % (auto) 13.9 % (0.0-12.0); Neutrophils # (auto) 3.8 uL; Neutrophils % (auto) 66.7 % (37.0-80.0); Platelet Count (auto) 279 10^3/uL (140-450); Red Cell Distribution Width 17.2 % (11.6-16.0); SUSPECT SEE PRINTOUT; White Blood Cell 5.8 10^3/uL (4.4-10.8)
[2016-12-27 06:16] LABS: Calcium 8.5 mg/dL (8.5-10.1)
[2016-12-27 06:19] LABS: BUN/Creatinine Ratio 9.2
[2016-12-27 09:00] VITALS: BP 112/60
[2016-12-27] MEDS: cefTRIAXone 1GM/50ML D5W 50 ML IV SCH (09:31)
[2016-12-27] MEDS: AZITHROMYCIN 250 MG TAB PO SCH (09:31)
[2016-12-27] MEDS: PANTOPRAZOLE 40 MG TAB PO SCH ×2 (09:31→23:53)
[2016-12-27] MEDS ORDERED: MORPHINE SULF INJ 2 MG/ML SYRINGE 1ML IV PRN (10:45)
[2016-12-27 13:00] VITALS: BP 128/60
[2016-12-27 17:00] VITALS: BP 99/60
[2016-12-27 20:00] VITALS: BP 99/60
[2016-12-27] MEDS: TAMSULOSIN HYDROCHLORIDE 0.4 MG CAP PO SCH (20:15)
[2016-12-27 22:05] VITALS: BP 115/71
[2016-12-28] MEDS: IPRATROPIUM BROM 0.5 MG/2.5ML INH SOL NEB SCH ×3 (00:39→12:00)
[2016-12-28] MEDS: ALBUTEROL SULF 2.5 MG/0.5ML(0.5%) NEB SOLN NEB SCH ×3 (00:39→12:00)
[2016-12-28 00:45] VITALS: BP 99/60
[2016-12-28] MEDS: MORPHINE SULF INJ 2 MG/ML SYRINGE 1ML IV PRN (02:27)
[2016-12-28 05:18] VITALS: BP 112/64
[2016-12-28 09:00] VITALS: BP 108/66
[2016-12-28] MEDS: PANTOPRAZOLE 40 MG TAB PO SCH (09:29)
[2016-12-28] MEDS: cefTRIAXone 1GM/50ML D5W 50 ML IV SCH (09:29)
[2016-12-28] MEDS: AZITHROMYCIN 250 MG TAB PO SCH (09:30)
[2016-12-28 13:00] VITALS: BP 117/78
[2016-12-28 17:00] VITALS: BP 113/63
[2016-12-28] MEDS: TAMSULOSIN HYDROCHLORIDE 0.4 MG CAP PO SCH (17:55)
== END 2016-12-28 19:00 | disposition home health service (06) | DRG 208 ==
LOC: EDBD 12:55 → ER 13:01 → TELE 13:02 → ICU WEST 21:45 → DOU IN ICU 12-20 17:57 → ICU WEST 12-21 13:55 → TELE-EAST 12-25 15:40
PROVIDERS: ADMIT Internal Medicine; ATTEND Internal Medicine
PROC: 0W9930Z Drainage of Right Pleural Cavity with Drainage Device, Percutaneous Approach (ICD-10-PCS; 2016-12-18)
PROC: 30233N1 Transfusion of Nonautologous Red Blood Cells into Peripheral Vein, Percutaneous Approach (ICD-10-PCS; 2016-12-19)
PROC: 0W9930Z Drainage of Right Pleural Cavity with Drainage Device, Percutaneous Approach (ICD-10-PCS; 2016-12-19)
PROC: 0W3P8ZZ Control Bleeding in Gastrointestinal Tract, Via Natural or Artificial Opening Endoscopic (ICD-10-PCS; principal; 2016-12-19 11:45)
PROC: 5A1945Z Respiratory Ventilation, 24-96 Consecutive Hours (ICD-10-PCS; 2016-12-21)
PROC: 0DJ08ZZ Inspection of Upper Intestinal Tract, Via Natural or Artificial Opening Endoscopic (ICD-10-PCS; 2016-12-21)
PROC: 0BH17EZ Insertion of Endotracheal Airway into Trachea, Via Natural or Artificial Opening (ICD-10-PCS; 2016-12-21)
PROC: 30233R1 Transfusion of Nonautologous Platelets into Peripheral Vein, Percutaneous Approach (ICD-10-PCS; 2016-12-21)
PROC: 0DBN8ZZ Excision of Sigmoid Colon, Via Natural or Artificial Opening Endoscopic (ICD-10-PCS; 2016-12-22)
DX: J93.83 Other pneumothorax (principal); J96.20 Acute and chronic respiratory failure, unspecified whether with hypoxia or hypercapnia; N17.0 Acute kidney failure with tubular necrosis; K25.4 Chronic or unspecified gastric ulcer with hemorrhage; R65.10 Systemic inflammatory response syndrome (SIRS) of non-infectious origin without acute organ dysfunction; D69.6 Thrombocytopenia, unspecified; I95.9 Hypotension, unspecified; D62 Acute posthemorrhagic anemia; K92.0 Hematemesis; I69.354 Hemiplegia and hemiparesis following cerebral infarction affecting left non-dominant side; K92.1 Melena; Z71.3 Dietary counseling and surveillance; J44.9 Chronic obstructive pulmonary disease, unspecified; D64.9 Anemia, unspecified; N40.0 Benign prostatic hyperplasia without lower urinary tract symptoms; D12.5 Benign neoplasm of sigmoid colon; F17.210 Nicotine dependence, cigarettes, uncomplicated; K22.2 Esophageal obstruction; K44.9 Diaphragmatic hernia without obstruction or gangrene; Z88.6 Allergy status to analgesic agent; Z99.81 Dependence on supplemental oxygen; Z79.899 Other long term (current) drug therapy
CPT/HCPCS: 32551; 36415; 36600; 43235; 43255; 45385; 70450; 71010; 74176; 80048; 80053; 81001; 82805; 82962; 83880; 84484; 85007; 85014; 85018; 85025; 85027; 85610; 85730; 86850; 86860; 86870; 86880; 86900; 86901; 86905; 86906; 86922; 86970; 86971; 87070; 87081; 87205; 93005; 94002; 94003; 94640; 96361; 96365; 96368; 96375; 97110; 97116; 97163; 97530; C9113; J0696; J2001; J2250; J2405

== ENCOUNTER → 2017-01-26 | Outpatient (CLI) | payer MEDICARE ==
[2017-01-26 12:49] LABS: Basophils # (auto) 0 uL; Basophils % (auto) 0.5 % (0.0-2.0); CONDITION Y; Eosinophils # (auto) 0.1 uL; Eosinophils % (auto) 2.6 % (0.0-7.0); Hematocrit 35.8 % (41.0-53.0); Hemoglobin 11.9 g/dL (13.5-17.5); Lymphocytes # (auto) 1.5 uL; Lymphocytes % (auto) 26.8 % (10.0-50.0); Mean Corpuscular Hemoglobin 29.8 pg (28.0-32.0); Mean Corpuscular Hgb Conc. 33.2 g/dL (32.0-36.0); Mean Corpuscular Volume 89.9 fL (80.0-100.0); Mean Platelet Volume 9.5 fL (6.9-10.8); Monocytes # (auto) 0.6 uL; Monocytes % (auto) 11.2 % (0.0-12.0); Neutrophils # (auto) 3.2 uL; Neutrophils % (auto) 58.9 % (37.0-80.0); Platelet Count (auto) 246 10^3/uL (140-450); Red Cell Distribution Width 17.1 % (11.8-14.3); SUSPECT SEE PRINTOUT; White Blood Cell 5.4 10^3/uL (4.4-10.8)
== END | disposition home or self-care (01) ==
LOC: LAB 12:33
PROVIDERS: ATTEND Internal Medicine Gastroenterology
DX: K92.2 Gastrointestinal hemorrhage, unspecified (principal); J44.9 Chronic obstructive pulmonary disease, unspecified
CPT/HCPCS: 36415; 85025

== ENCOUNTER → 2017-03-06 | Outpatient (CLI) | payer MEDICARE ==
[~2017-03-06] MED LIST changes: +BARIUM SULFATE 98% 340 GM PWDR ONE
== END | disposition home or self-care (01) ==
LOC: XY 08:28
PROVIDERS: ATTEND Internal Medicine Gastroenterology
DX: R13.10 Dysphagia, unspecified (principal)
CPT/HCPCS: 74230; 92611; G8996; G8997; G8998

== ENCOUNTER → 2018-03-11 | Outpatient (CLI) | payer MEDICARE ==
[~2018-03-11] MED LIST changes: -BARIUM SULFATE 98% 340 GM PWDR ONE
[2018-03-11 16:15] LABS: Albumin 3.9 g/dL (3.4-5.0); Calcium 9.5 mg/dL (8.5-10.1); Potassium 4.3 mmol/L (3.5-5.1)
[2018-03-11 16:17] LABS: Basophils # (auto) 0 uL; Basophils % (auto) 0.7 % (0.0-2.0); Eosinophils # (auto) 0 uL; Eosinophils % (auto) 0.2 % (0.0-7.0); Hematocrit 43.8 % (41.0-53.0); Lymphocytes # (auto) 1.3 uL; Lymphocytes % (auto) 19.2 % (10.0-50.0); Mean Corpuscular Hemoglobin 28.4 pg (28.0-32.0); Mean Corpuscular Volume 88.9 fL (80.0-100.0); Monocytes # (auto) 0.9 uL; Monocytes % (auto) 12.9 % (0.0-12.0); Neutrophils # (auto) 4.5 uL; Nucleated Red Blood Cells % 0.1 %; Platelet Count (auto) 118 10^3/uL (140-450); Red Blood Cells 4.93 10^6/uL (4.5-5.90); Red Cell Distribution Width 18.5 % (11.8-14.3); White Blood Cell 6.7 10^3/uL (4.4-10.8)
[2018-03-11 16:19] LABS: BUN/Creatinine Ratio 13.6; Bilirubin, Direct 0.1 mg/dL (0-0.2); Bilirubin, Total 0.4 mg/dL (0.2-1.0); Total Protein 8.1 g/dL (6.4-8.2)
== END | disposition home or self-care (01) ==
LOC: LAB 11:54
PROVIDERS: ATTEND Internal Medicine Cardiovascular Disease
DX: Z00.01 Encounter for general adult medical examination with abnormal findings (principal); E03.9 Hypothyroidism, unspecified; E55.9 Vitamin D deficiency, unspecified; E11.9 Type 2 diabetes mellitus without complications; E29.1 Testicular hypofunction; C61 Malignant neoplasm of prostate; K74.1 Hepatic sclerosis
CPT/HCPCS: 36415; 80048; 80061; 80076; 82306; 83036; 84153; 84154; 84403; 84443; 85025

== ENCOUNTER → 2018-03-13 | Outpatient (CLI) | payer MEDICARE | END | disposition home or self-care (01) | LOC: Rad HDHVI 14:12 | PROVIDERS: ATTEND Internal Medicine Cardiovascular Disease | DX: I35.1 Nonrheumatic aortic (valve) insufficiency (principal); K92.2 Gastrointestinal hemorrhage, unspecified | CPT/HCPCS: 93306 ==

== ENCOUNTER → 2018-03-19 | Outpatient (CLI) | payer MEDICARE ==
[~2018-03-19] MED LIST changes: +FINA5TAB4 PO; +GABA100C9 PO
== END | disposition home or self-care (01) ==
LOC: Rad HDHVI 12:59
PROVIDERS: ATTEND Internal Medicine Cardiovascular Disease
DX: I63.9 Cerebral infarction, unspecified (principal); R00.2 Palpitations
CPT/HCPCS: 93880

== ENCOUNTER → 2018-03-26 | Outpatient (CLI) | payer MEDICARE ==
[2018-03-26 10:30] VITALS: BP 136/74
[2018-03-26 10:55] VITALS: BP 119/67
[2018-03-26 12:42] LABS: INR 1.06 (0.9-1.15); Partial Thromboplastin Time 31.9 sec (23.78-33.04); Prothrombin Time 11.3 sec (9.27-12.13)
[2018-03-26 12:43] LABS: Basophils # (auto) 0 uL; Basophils % (auto) 0.4 % (0.0-2.0); Eosinophils # (auto) 0 uL; Eosinophils % (auto) 0.4 % (0.0-7.0); Hematocrit 40.6 % (41.0-53.0); Hemoglobin 13.1 g/dL (13.5-17.5); Lymphocytes # (auto) 1.5 uL; Lymphocytes % (auto) 24.3 % (10.0-50.0); Mean Corpuscular Hemoglobin 28.3 pg (28.0-32.0); Mean Corpuscular Hgb Conc. 32.3 g/dL (32.0-36.0); Mean Corpuscular Volume 87.5 fL (80.0-100.0); Monocytes # (auto) 0.7 uL; Monocytes % (auto) 11.8 % (0.0-12.0); Neutrophils # (auto) 3.8 uL; Neutrophils % (auto) 63.1 % (37.0-80.0); Nucleated Red Blood Cells % 0.1 %; Platelet Count (auto) 116 10^3/uL (140-450); Red Blood Cells 4.64 10^6/uL (4.5-5.90); Red Cell Distribution Width 17.6 % (11.8-14.3); White Blood Cell 6.1 10^3/uL (4.4-10.8)
[2018-03-26 12:54] LABS: Potassium 4.2 mmol/L (3.5-5.1)
[2018-03-26 12:58] LABS: BUN/Creatinine Ratio 17.9; Calcium 9.1 mg/dL (8.5-10.1)
== END | disposition home or self-care (01) ==
LOC: Rad HDHVI 10:18
PROVIDERS: ATTEND Internal Medicine Cardiovascular Disease
DX: Z01.818 Encounter for other preprocedural examination (principal); D64.9 Anemia, unspecified; R79.1 Abnormal coagulation profile; I10 Essential (primary) hypertension
CPT/HCPCS: 36415; 71046; 80048; 85025; 85610; 85730; 93005; G0463

== ENCOUNTER → 2018-03-28 | Day surgery (SDC) | payer MEDICARE ==
[~2018-03-28] VITALS: Ht 162.6 cm; Wt 49.9 kg
[~2018-03-28] MED LIST changes: +ACETAMINOPHEN 500 MG TAB PO ONE; +ACETAMINOPHEN 500 MG TAB PO PRN; +ANGIOMAX 250 MG VIAL IV ONE; +IODIXANOL 320MG/ML 100ML BTL IV ONE; +IOHEXOL 350 MG/ML 100ML IJ ONE; +LIDOCAINE 2%HCL (LOCAL ANESTH.) INJ 10ml MDV ONE; +LIDOCAINE 2%HCL (LOCAL ANESTH.) INJ 20ML MDV ONE; +MIDAZOLAM HCL 1MG/1ML-2 ML VIAL ONE; +SODIUM CHL 0.9% 0 ML ONE; +fentaNYL CITRATE 100 MCG/2 ML VL ONE
== END | disposition home or self-care (01) ==
LOC: CATH 09:34
PROVIDERS: ATTEND Internal Medicine Cardiovascular Disease
DX: I25.10 Atherosclerotic heart disease of native coronary artery without angina pectoris (principal); R94.39 Abnormal result of other cardiovascular function study; J44.9 Chronic obstructive pulmonary disease, unspecified; N40.0 Benign prostatic hyperplasia without lower urinary tract symptoms; I10 Essential (primary) hypertension; E78.5 Hyperlipidemia, unspecified; Z88.6 Allergy status to analgesic agent; Z88.5 Allergy status to narcotic agent; Z82.3 Family history of stroke; Z82.49 Family history of ischemic heart disease and other diseases of the circulatory system; Z86.73 Personal history of transient ischemic attack (TIA), and cerebral infarction without residual deficits; Z87.891 Personal history of nicotine dependence
CPT/HCPCS: 93460; 99152; 99153; A6257; C1760; C1894; J1644; J2001; J2250; J3010; J7030; Q9967

== ENCOUNTER → 2018-05-03 | Outpatient (CLI) | payer MEDICARE ==
[~2018-05-03] MED LIST changes: -ACETAMINOPHEN 500 MG TAB PO ONE; -ACETAMINOPHEN 500 MG TAB PO PRN; -ANGIOMAX 250 MG VIAL IV ONE; -IODIXANOL 320MG/ML 100ML BTL IV ONE; -IOHEXOL 350 MG/ML 100ML IJ ONE; -LIDOCAINE 2%HCL (LOCAL ANESTH.) INJ 10ml MDV ONE; -LIDOCAINE 2%HCL (LOCAL ANESTH.) INJ 20ML MDV ONE; -MIDAZOLAM HCL 1MG/1ML-2 ML VIAL ONE; -SODIUM CHL 0.9% 0 ML ONE; -fentaNYL CITRATE 100 MCG/2 ML VL ONE
== END | disposition home or self-care (01) ==
LOC: XY 07:51
PROVIDERS: ATTEND Internal Medicine Gastroenterology
DX: R68.81 Early satiety (principal); R10.9 Unspecified abdominal pain; R11.2 Nausea with vomiting, unspecified
CPT/HCPCS: 78264; A9541

== ENCOUNTER → 2018-06-21 | Day surgery (SDC) | payer MEDICARE ==
[2018-06-18 10:21] LABS: INR 1.07 (0.9-1.15); Partial Thromboplastin Time 37.6 sec (23.78-33.04); Prothrombin Time 11.4 sec (9.27-12.13)
[2018-06-18 10:36] LABS: Hemoglobin 13.9 g/dL (13.5-17.5); Mean Corpuscular Hemoglobin 28.8 pg (28.0-32.0); Mean Corpuscular Volume 87.3 fL (80.0-100.0); Platelet Count (auto) 120 10^3/uL (140-450); Red Blood Cells 4.81 10^6/uL (4.5-5.90); Red Cell Distribution Width 16.8 % (11.8-14.3); White Blood Cell 6.8 10^3/uL (4.4-10.8)
[2018-06-18 10:40] LABS: Band Neutrophils % (manual) 0; Basophils % (manual) 0 (0.0-2.0); Blast Cells 0; Eosinophils % (manual) 0 (0-7); Metamyelocytes % 0; Myelocytes % 0; Promyelocytes % 0; Reactive Lymphocytes 0
[2018-06-18 10:50] LABS: Lymphocytes % (manual) 11 (10.0-50.0); Monocytes % (manual) 6 (0-12)
[~2018-06-21] VITALS: Ht 162.6 cm; Wt 49.9 kg
[~2018-06-21] MED LIST changes: +LIDOCAINE VISCOUS 2% 15ML UD ONE; +MIDAZOLAM HCL 5 MG/ML-1ML VIAL ONE; +SODIUM CHLORIDE LOCK 0 ML ONE; +diphenhdrAMINE HCL 50 MG/1 ML VL ONE; +fentaNYL CITRATE 100 MCG/2 ML VL ONE
== END | disposition home or self-care (01) ==
LOC: GI 09:14
PROVIDERS: ATTEND Internal Medicine Gastroenterology
DX: R10.13 Epigastric pain (principal); Z53.8 Procedure and treatment not carried out for other reasons; J44.9 Chronic obstructive pulmonary disease, unspecified; Z88.5 Allergy status to narcotic agent; Z88.6 Allergy status to analgesic agent; Z87.891 Personal history of nicotine dependence; Z82.3 Family history of stroke
CPT/HCPCS: 36415; 85007; 85027; 85610; 85730; J2250

== ENCOUNTER → 2019-01-08 | Outpatient (CLI) | payer MEDICARE ==
[~2019-01-08] MED LIST changes: +ALBUTEROL SULF 2.5 MG/0.5ML(0.5%) NEB SOLN ONE; +FLUT1AER3 IN; -LIDOCAINE VISCOUS 2% 15ML UD ONE; -MIDAZOLAM HCL 5 MG/ML-1ML VIAL ONE; -SODIUM CHLORIDE LOCK 0 ML ONE; -diphenhdrAMINE HCL 50 MG/1 ML VL ONE; -fentaNYL CITRATE 100 MCG/2 ML VL ONE
== END | disposition home or self-care (01) ==
LOC: RT 08:42
PROVIDERS: ATTEND Internal Medicine Pulmonary Disease
DX: J44.9 Chronic obstructive pulmonary disease, unspecified (principal)
CPT/HCPCS: 94060; J7611

== ENCOUNTER → 2019-01-29 | Outpatient (CLI) | payer MEDICARE ==
[~2019-01-29] MED LIST changes: -ALBUTEROL SULF 2.5 MG/0.5ML(0.5%) NEB SOLN ONE
== END | disposition home or self-care (01) ==
LOC: LAB 09:47
PROVIDERS: ATTEND Internal Medicine Gastroenterology
DX: K59.00 Constipation, unspecified (principal)
CPT/HCPCS: 36415; 82565; 84520

== ENCOUNTER 2019-03-02 08:51 | Inpatient (IN) | payer MEDICARE ==
[~2019-03-02] VITALS: Ht 157.5 cm; Wt 53.3 kg
[2019-03-02] MEDS ORDERED: methylPREDNISolone SOD SUCC 125 MG/2 ML VL IV ONE (09:30)
[2019-03-02] MEDS ORDERED: IPRATROPIUM BROM 0.5 MG/2.5ML INH SOL NEB ONE (09:30)
[2019-03-02] MEDS ORDERED: PROMETHAZINE W/CODEINE 5 ML ORAL SYRUP PO ONE (09:30)
[2019-03-02] MEDS ORDERED: ALBUTEROL SULF 2.5 MG/0.5ML(0.5%) NEB SOLN NEB ONE (09:30)
[2019-03-02 09:39] LABS: Hematocrit 45.1 % (41.0-53.0); Hemoglobin 14.6 g/dL (13.5-17.5); Mean Corpuscular Hemoglobin 27.8 pg (28.0-32.0); Mean Corpuscular Hgb Conc. 32.4 g/dL (32.0-36.0); Mean Corpuscular Volume 85.9 fL (80.0-100.0); Platelet Count (auto) 95 10^3/uL (140-450); Red Blood Cells 5.25 10^6/uL (4.5-5.90); White Blood Cell 15.2 10^3/uL (4.4-10.8)
[2019-03-02 09:43] LABS: Basophils % (manual) 0 (0.0-2.0); Blast Cells 0; Metamyelocytes % 0; Myelocytes % 0; Promyelocytes % 0
[2019-03-02] MEDS ORDERED: PROMETHAZINE HCL 25 MG/ML 1ML IV ONE (09:45)
[2019-03-02] MEDS ORDERED: MORPHINE SULF INJ 2 MG/ML SYRINGE 1ML IV ONE (09:45)
[2019-03-02] MEDS ORDERED: cefTRIAXone 1GM/50ML D5W 50 ML IV ONE (10:00)
[2019-03-02 10:05] LABS: Alanine Aminotransferase 25 U/L (16-61); Albumin 3.6 g/dL (3.4-5.0); Anion Gap 8 (5-15); Aspartate Aminotransferase 24 U/L (15-37); BUN/Creatinine Ratio 6.3; Blood Urea Nitrogen 11 mg/dL (7-18); Carbon Dioxide 25 mmol/L (21-32); Chloride 106 mmol/L (98-107); GFR African American 48 mL/min; GFR Non-African American 40 mL/min; Glucose 129 mg/dL (74-106); Potassium 3.9 mmol/L (3.5-5.1); Sodium 139 mmol/L (136-145)
[2019-03-02 10:10] LABS: Alkaline Phosphatase 183 U/L (45-117); Bilirubin, Total 1.1 mg/dL (0.2-1.0); Lactic Acid w/Reflex 2.9 mmol/L (0.4-2.0); Total Protein 7.6 g/dL (6.4-8.2)
[2019-03-02 11:26] LABS: Band Neutrophils % (manual) 2; Eosinophils % (manual) 3 (0-7); Lymphocytes % (manual) 8 (10.0-50.0); Monocytes % (manual) 22 (0-12); Reactive Lymphocytes 3
[2019-03-02] MEDS ORDERED: SODIUM CHLORIDE 0.9% 1,000 ML IV ONE ×2 (12:44)
[2019-03-02] MEDS ORDERED: NITROGLYCERIN 0.4 MG SL TAB SL PRN (13:30)
[2019-03-02] MEDS ORDERED: TEMAZEPAM 15 MG CAP PO PRN (13:30)
[2019-03-02] MEDS ORDERED: MORPHINE SULFATE 4 MG/ML SYR/VIAL IV PRN (13:30)
[2019-03-02] MEDS ORDERED: PROMETHAZINE HCL 25 MG/ML 1ML IV PRN (13:30)
[2019-03-02] MEDS ORDERED: ALBUTEROL SULF 2.5 MG/0.5ML(0.5%) NEB SOLN NEB PRN (13:30)
[2019-03-02] MEDS ORDERED: MORPHINE SULF INJ 2 MG/ML SYRINGE 1ML IV PRN (13:30)
[2019-03-02] MEDS ORDERED: LACTULOSE 20Gm/30ML SOLN PO PRN (13:30)
[2019-03-02] MEDS: SODIUM CHLORIDE 0.9% 1,000 ML IV SCH ×2 (13:37→17:36)
--- NOTE | 2019-03-02 15:25 | NUR ---
Telemetry admit from [facility] admitted to Telemetry unit after SBAR received. Patient oriented to Dioni Florentino, primary RN, unit, room, bed, and unit policies regarding patient care and visiting hours. Patient now on continuous telemetry monitoring, tele box # 75 and telemetry reading on arrival to unit is sinus rhythm. Patient placed on bedside oxygen @ 4L/min, weighed by bedscale and encouraged to call if they need something. All questions and concerns addressed, patient verbalized understanding.
[2019-03-02 15:54] VITALS: BP 118/67
[2019-03-02] MEDS: MORPHINE SULF INJ 2 MG/ML SYRINGE 1ML IV PRN ×2 (16:15→22:14)
[2019-03-02] MEDS ORDERED: INFLUENZA QUAD 2019-2020 0.5ml SYRG IM ONE (16:30)
[2019-03-02 17:14] VITALS: BP 118/66
[2019-03-02] MEDS: methylPREDNISolone SOD SUCC 40 MG/ML VL IV SCH ×2 (17:47→23:38)
[2019-03-02] MEDS: ALBUTEROL SULF 2.5 MG/0.5ML(0.5%) NEB SOLN NEB SCH (18:20)
[2019-03-02] MEDS: IPRATROPIUM BROM 0.5 MG/2.5ML INH SOL NEB SCH (18:20)
--- NOTE | 2019-03-02 19:06 | NUR ---
Opening Shift Note Assumed care of patient, awake and alert. No signs of distress/sob/pain. Instructed on POC and to call for assist PRN, will continue to monitor for changes Q1hr and PRN. Side rails up x2. Bed locked in lowest position. Call light within reach.
[2019-03-02 20:08] VITALS: BP 118/66
[2019-03-02] MEDS ORDERED: GABAPENTIN 100 MG CAP PO ONE (23:00)
--- NOTE | 2019-03-02 23:38 | NUR ---
Paged RT for a breathing treatment. Patient verbalized shortness of breath. O2 saturation at 94% at this time on 4L nasal cannula.
--- NOTE | 2019-03-03 00:08 | NUR ---
Re-paged RT for a breathing treatment. Patient continue to verbalized shortness of breath. O2 saturation at 95% on 4L nasal cannula.
--- NOTE | 2019-03-03 00:12 | NUR ---
RT at bedside.
[2019-03-03] MEDS: IPRATROPIUM BROM 0.5 MG/2.5ML INH SOL NEB SCH ×4 (00:13→18:18)
[2019-03-03] MEDS: ALBUTEROL SULF 2.5 MG/0.5ML(0.5%) NEB SOLN NEB SCH ×4 (00:13→18:22)
[2019-03-03] MEDS: traMADol HCL 50 MG TAB PO PRN (01:26)
[2019-03-03] MEDS: methylPREDNISolone SOD SUCC 40 MG/ML VL IV SCH ×3 (05:23→17:42)
[2019-03-03 05:45] VITALS: BP 124/77
--- NOTE | 2019-03-03 07:49 | NUR ---
Endorsed care to day shift RN.
[2019-03-03] MEDS ORDERED: cefTRIAXone 1GM/50ML D5W 50 ML IV SCH (09:00)
[2019-03-03] MEDS: PANTOPRAZOLE 40 MG TAB PO SCH (09:17)
[2019-03-03] MEDS: ENOXAPARIN SOD 40 MG/0.4 ML SYRINGE SC SCH (09:18)
[2019-03-03] MEDS: MORPHINE SULF INJ 2 MG/ML SYRINGE 1ML IV PRN ×3 (09:18→18:49)
--- NOTE | 2019-03-03 09:35 | NUR ---
PT REFUSES LOVENOX, RISKS AND BENEFITS EXPLAINED TO PATIENT. PT REPORTS THAT Trista KENNEDY INSTRUCTED ON NO BLOOD THINNERS.
[2019-03-03] MEDS ORDERED: AZITHROMYCIN 500MG/ 250ML 250 ML IV SCH (10:00)
--- NOTE | 2019-03-03 11:00 | NUR ---
DR. GABRIEL MADE AWARE OF PT'S REFUSAL FOR LOVENOX. PER MD; TO APPLY SCDs; EXPLAINED AND INSTRUCTED PT ON SCDs. PT IN AGREEMENT WITH THERAPY.
[2019-03-03] MEDS ORDERED: DOXYCYCLINE 100 MG TAB/CAP PO ONE (12:00)
[2019-03-03 13:00] VITALS: BP 115/62
[2019-03-03 13:44] LABS: BUN/Creatinine Ratio 15.7; Calcium 8.5 mg/dL (8.5-10.1); Potassium 3.8 mmol/L (3.5-5.1)
[2019-03-03] MEDS: guaiFENesin 200 MG/10 ML UD GT PRN ×2 (13:52→18:49)
[2019-03-03 13:55] LABS: Lactic Acid w/Reflex 2.5 mmol/L (0.4-2.0)
[2019-03-03] MEDS ORDERED: CARISOPRODOL 350 MG TAB PO PRN (14:30)
[2019-03-03 15:12] LABS: Hematocrit 38.4 % (41.0-53.0); Hemoglobin 12.3 g/dL (13.5-17.5); Mean Corpuscular Hemoglobin 27.8 pg (28.0-32.0); Mean Corpuscular Volume 86.8 fL (80.0-100.0); Platelet Count (auto) 97 10^3/uL (140-450); Red Blood Cells 4.42 10^6/uL (4.5-5.90)
[2019-03-03 15:23] LABS: Band Neutrophils % (manual) 0; Basophils % (manual) 0 (0.0-2.0); Blast Cells 0; Eosinophils % (manual) 0 (0-7); Metamyelocytes % 0; Myelocytes % 0; Promyelocytes % 0; Reactive Lymphocytes 0
[2019-03-03 16:14] LABS: Lymphocytes % (manual) 5 (10.0-50.0); Monocytes % (manual) 17 (0-12)
[2019-03-03 17:00] VITALS: BP 108/58
[2019-03-03] MEDS: SODIUM CHLORIDE 0.9% 1,000 ML IV SCH (17:43)
--- NOTE | 2019-03-03 19:05 | NUR ---
Opening Shift Note Assumed care of patient, awake and alert. No S/S of distress/SOB or pain. Instructed on POC and to call for assist PRN, will continue to monitor for changes Q1hr and PRN. Side rails up x2. Bed locked in lowest position. Call light within reach. Family at bedside.
[2019-03-03 21:00] VITALS: BP 115/58
[2019-03-03] MEDS: GABAPENTIN 100 MG CAP PO SCH (21:15)
[2019-03-03] MEDS: DOXYCYCLINE 100 MG TAB/CAP PO SCH (21:15)
[2019-03-03] MEDS: ACETAMINOPHEN 500 MG TAB PO PRN (21:15)
[2019-03-04] VITALS (7 sets, daily range): BP systolic 120–132; BP diastolic 61–79
[2019-03-04] MEDS: MORPHINE SULF INJ 2 MG/ML SYRINGE 1ML IV PRN ×5 (00:09→23:33)
[2019-03-04] MEDS: methylPREDNISolone SOD SUCC 40 MG/ML VL IV SCH ×5 (00:09→20:41)
[2019-03-04] MEDS: IPRATROPIUM BROM 0.5 MG/2.5ML INH SOL NEB SCH ×4 (00:27→18:48)
[2019-03-04] MEDS: ALBUTEROL SULF 2.5 MG/0.5ML(0.5%) NEB SOLN NEB SCH ×4 (00:27→18:48)
--- NOTE | 2019-03-04 02:19 | NUR ---
Rounds Patient in bed awake with no signs of distress. Will continue to monitor Q1HPRN.
[2019-03-04] MEDS: guaiFENesin 200 MG/10 ML UD GT PRN ×4 (03:34→20:40)
[2019-03-04] MEDS: ACETAMINOPHEN 500 MG TAB PO PRN (03:34)
[2019-03-04] MEDS: SODIUM CHLORIDE 0.9% 1,000 ML IV SCH (06:08)
[2019-03-04 06:19] LABS: Hematocrit 35.9 % (41.0-53.0); Hemoglobin 11.5 g/dL (13.5-17.5); Mean Corpuscular Hemoglobin 27.8 pg (28.0-32.0); Mean Corpuscular Volume 86.8 fL (80.0-100.0); Platelet Count (auto) 110 10^3/uL (140-450); Red Blood Cells 4.13 10^6/uL (4.5-5.90); Red Cell Distribution Width 17.1 % (11.8-14.3); White Blood Cell 23.6 10^3/uL (4.4-10.8)
[2019-03-04 06:35] LABS: Basophils % (manual) 0 (0.0-2.0); Blast Cells 0; Eosinophils % (manual) 0 (0-7); Promyelocytes % 0; Reactive Lymphocytes 0
[2019-03-04 06:38] LABS: BUN/Creatinine Ratio 20.5; Calcium 8.2 mg/dL (8.5-10.1); Potassium 4.2 mmol/L (3.5-5.1)
[2019-03-04 07:33] LABS: Band Neutrophils % (manual) 1; Lymphocytes % (manual) 3 (10.0-50.0); Metamyelocytes % 2; Monocytes % (manual) 6 (0-12); Myelocytes % 1
--- NOTE | 2019-03-04 07:35 | NUR ---
Opening Note Received report from shift leader RN. Patient is awake, alert and oriented x4. No signs or symptoms of distress noted at this time. Patient is on 4L NC. Patient states abdominal pain 9/10 and is requesting pain medication. Will medicate per orders. Reviewed plan of care with patient, patient verbalized understanding. Bed in low and locked position, call light within reach. Will continue to monitor Q1 hour and PRN.
--- NOTE | 2019-03-04 07:40 | NUR ---
Endorsed care to day shift RN.
[2019-03-04] MEDS: LEVOFLOXACIN 250MG 50 ML IV SCH (09:42)
[2019-03-04] MEDS: GABAPENTIN 100 MG CAP PO SCH (09:43)
[2019-03-04] MEDS: DOXYCYCLINE 100 MG TAB/CAP PO SCH ×2 (09:43→20:41)
[2019-03-04] MEDS: PANTOPRAZOLE 40 MG TAB PO SCH (09:43)
[2019-03-04] MEDS: ENOXAPARIN SOD 40 MG/0.4 ML SYRINGE SC SCH (09:43)
--- NOTE | 2019-03-04 10:10 | NUR ---
Pain Patient complains of abdominal pain 9/10 and is requesting pain medications. Will medicate per orders. Will continue to monitor Q1 hour and PRN.
[2019-03-04] MEDS: traMADol HCL 50 MG TAB PO PRN ×2 (12:21→18:18)
--- NOTE | 2019-03-04 12:21 | NUR ---
Patient complains of pain Patient continues to complain of abdominal pain 01/21. Will medicate with PRN pain medications. Patient provided with heat packs for comfort. Will continue to monitor Q1 hour and PRN.
--- NOTE | 2019-03-04 14:20 | NUR ---
at bedside Updating patient on plan of care.
--- NOTE | 2019-03-04 15:45 | NUR ---
Patient taken down to CT
[2019-03-04] MEDS: LIDOCAINE 5% TOPICAL PATCH TOP SCH (15:46)
[2019-03-04] MEDS: ACETYLCYSTEINE 10 %(100MG/ML) SOL 4ML NEB SCH (18:48)
--- NOTE | 2019-03-04 19:19 | NUR ---
Closing Note Report given to spool carrier RN. Family at bedside. No signs or symptoms of distress noted at this time.
--- NOTE | 2019-03-04 19:20 | NUR ---
Opening Shift Note Assumed care of patient, from Summer RN. Patient is alert and oriented x4. and daughters noted at the bedside. Patient is complaining of generalized pain (pain scale 9/10), will medicate patient as ordered by MD. Patient is on 4L NC and denies shortness of breath at this time. Instructed on plan of care and to call for assistance as needed. Bed is locked in lowest position, side rails x 2 are up, call light is within reach, and bed alarm is on.
--- NOTE | 2019-03-05 00:12 | NUR ---
RT NOTE PT DIDN'T WANT TO STAY AWAKE FOR TX. DENIES ANY SOB. KNOWS TO HAVE RT PAGED IF THEY CHANGE THEIR MIND. NO SIGNS OF RESP DISTRESS NOTED BY RT.
[2019-03-05] MEDS: ACETYLCYSTEINE 10 %(100MG/ML) SOL 4ML NEB SCH ×4 (00:28→12:39)
[2019-03-05] MEDS: ALBUTEROL SULF 2.5 MG/0.5ML(0.5%) NEB SOLN NEB SCH ×4 (00:28→12:39)
[2019-03-05] MEDS: IPRATROPIUM BROM 0.5 MG/2.5ML INH SOL NEB SCH ×4 (00:28→12:39)
[2019-03-05] MEDS: traMADol HCL 50 MG TAB PO PRN ×3 (00:49→14:24)
[2019-03-05] MEDS: guaiFENesin 200 MG/10 ML UD GT PRN ×2 (00:51→05:40)
[2019-03-05] MEDS: MORPHINE SULF INJ 2 MG/ML SYRINGE 1ML IV PRN (03:39)
--- NOTE | 2019-03-05 03:46 | NUR ---
LIDOCAINE REMOVED Lidocaine removed as ordered by MD (see eMAR).
[2019-03-05 05:00] VITALS: BP 123/63
--- NOTE | 2019-03-05 05:54 | NUR ---
IV INSERTION IV access obtained, via clean sterile technique by inserting 22 gauge catheter at right forearm after 1 attempt. IV secured properly. No trauma to site. Patient tolerated well. IV REMOVAL IV to left forearm DC'd per protocol. IV DC'd with clean sterile technique, catheter fully intact. Pressure dressing applied to site. Patient tolerated well.
--- NOTE | 2019-03-05 06:53 | NUR ---
RT PAGED FOR BREATHING RT paged for scheduled breathing treatment.
[2019-03-05 08:15] VITALS: BP 126/72
[2019-03-05] MEDS: DOXYCYCLINE 100 MG TAB/CAP PO SCH (09:40)
[2019-03-05] MEDS: LIDOCAINE 5% TOPICAL PATCH TOP SCH ×2 (09:40→13:05)
[2019-03-05] MEDS: ENOXAPARIN SOD 40 MG/0.4 ML SYRINGE SC SCH (09:40)
[2019-03-05] MEDS: GABAPENTIN 100 MG CAP PO SCH (09:41)
[2019-03-05] MEDS: PANTOPRAZOLE 40 MG TAB PO SCH (09:41)
[2019-03-05] MEDS: methylPREDNISolone SOD SUCC 40 MG/ML VL IV SCH (09:41)
[2019-03-05] MEDS: LEVOFLOXACIN 250MG 50 ML IV SCH (09:41)
[2019-03-05] MEDS ORDERED: DOX100T PO (10:59)
[2019-03-05] MEDS ORDERED: FURO1TAB33 PO (10:59)
[2019-03-05] MEDS ORDERED: PANT40T PO (10:59)
[2019-03-05] MEDS ORDERED: LEVO250T19 PO (10:59)
[2019-03-05] MEDS ORDERED: FUROSEMIDE 40 MG/4 ML VIAL IV ONE (11:00)
[2019-03-05] MEDS ORDERED: PRED1PAK10 PO (11:05)
--- NOTE | 2019-03-05 11:15 | NUR ---
Respiratory note: NTS DONE PER DR GABRIEL'S ORDERS. PT TOLERATED PROCEDURE WELL. NO ADVERSE EFFECTS NOTED.
[2019-03-05] MEDS ORDERED: POTA10TA51 PO (11:32)
[2019-03-05] MEDS ORDERED: POTASSIUM CHL 20 Meq TABLET PO ONE (11:45)
[2019-03-05] MEDS ORDERED: INFLUENZA QUAD 2019-2020 0.5ml SYRG IM ONE (12:15)
[2019-03-05 13:12] VITALS: BP 138/70
--- NOTE | 2019-03-05 14:59 | NUR ---
PATIENT DISCHARGED HOME. ALL EDUCATION MATERIALS GIVEN TO SANAM, DAUGHTER, AND EXPLAINED TO PATIENT/FAMILY. INSTRUCTED ON NEW MEDICATIONS AND FOLLOW UP APPOINTMENT. PATIENT VERBALIZED UNDERSTANDING. TELE BOX RETURNED TO CARDIO UNIT. IV CATHETER REMOVED, MANUAL PRESSURE APPLIED, CATHETER INTACT. THIS RN ASSISTED PATIENT OUT TO PRIVATE AUTO, VIA WHEELCHAIR. RESPIRATIONS EVEN AND UNLABORED. PATIENT ABLE TO CONNECT TO HOME 02 ONCE IN PRIVATE AUTO WITHOUT INCIDENCE. PATIENT LEFT WITH ALL BELONGINGS.
--- NOTE | 2019-03-05 15:27 | NUR ---
assessment Patient is a 79 year old male who is alert and oriented. Patients cognitive abilities are intact. Prior to admission patient lived home with family and functioned with assistance. Per patient he will return home to his prior living arrangements post discharge and family will transport him home. Patients PCP is Dr Correa. Patient feels safe returning home on discharge. Patient has no need for DME. Patient has a ss consult for home health. Patient agrees to home health. I informed patient he has a right to speak to a public health social worker regarding all care. I informed patient he has a right to participate in any and all discharge planning. Patient does not have a POA and advanced directive. I have offered patient information on POA and advanced directives. I informed the patient the advantages and benefits of having an Advanced Directive. Patient verbalized understanding and agreed to discharge plan. Addendum: 03/05/19 at 1536 by Maranda OLIVEROS Amended: Links added.
--- NOTE | 2019-03-05 15:47 | NUR ---
Discharge planning per consult, patient has orders for home health safety evaluation. Patient was given a choice letter, he had no preference. Referral was sent to [facility]. Placed a follow up call, spoke with Sal[facility] and was advised that they will accept the patient upon discharge and start of care will be within 24-48 hours. I advised patient is discharging today;she advised they will call the patient. Addendum: 03/05/19 at 1550 by MARCELA IVEY Amended: Links added.
== END 2019-03-05 14:46 | disposition home health service (06) | DRG 871 ==
LOC: EDBD 08:51 → ER 08:51 → TELE 08:52 → TELE-WESTW 15:27
PROVIDERS: ADMIT Internal Medicine; ATTEND Internal Medicine Nephrology
DX: A41.9 Sepsis, unspecified organism (principal); N17.0 Acute kidney failure with tubular necrosis; J15.6 Pneumonia due to other Gram-negative bacteria; J96.21 Acute and chronic respiratory failure with hypoxia; J44.1 Chronic obstructive pulmonary disease with (acute) exacerbation; J44.0 Chronic obstructive pulmonary disease with (acute) lower respiratory infection; D69.6 Thrombocytopenia, unspecified; R65.20 Severe sepsis without septic shock; I69.30 Unspecified sequelae of cerebral infarction; Z87.891 Personal history of nicotine dependence; Z99.81 Dependence on supplemental oxygen; Z23 Encounter for immunization; Z88.5 Allergy status to narcotic agent; Z88.8 Allergy status to other drugs, medicaments and biological substances
CPT/HCPCS: 31720; 36415; 71045; 74176; 80048; 80053; 83605; 84484; 85007; 85027; 85379; 87040; 87070; 87205; 87804; 93005; 94640; 96365; 96375; G0378; J0696

== ENCOUNTER 2019-11-03 20:50 | Inpatient (IN) | payer MEDICARE ==
[~2019-11-03] VITALS: Ht 162.6 cm; Wt 47.4 kg
[~2019-11-03 20:50] MED LIST changes: +DOX100T PO; +LEVO250T19 PO; +PANT40T PO; +PRED1PAK10 PO
[2019-11-03 21:59] LABS: Hemoglobin 12.1 g/dL (13.5-17.5)
[2019-11-03 22:01] LABS: Hematocrit 38.1 % (41.0-53.0); Mean Corpuscular Hemoglobin 26.8 pg (28.0-32.0); Mean Corpuscular Hgb Conc. 31.8 g/dL (32.0-36.0); Mean Corpuscular Volume 84.3 fL (80.0-100.0); Platelet Count (auto) 129 10^3/uL (140-450); Red Blood Cells 4.52 10^6/uL (4.5-5.90); Red Cell Distribution Width 17.2 % (11.8-14.3)
[2019-11-03 22:15] LABS: Basophils % (manual) 0 (0.0-2.0); Blast Cells 0; Eosinophils % (manual) 0 (0-7); Promyelocytes % 0; Reactive Lymphocytes 0; White Blood Cell 30.6 10^3/uL (4.4-10.8)
[2019-11-03 22:17] LABS: INR 1.18 (0.9-1.15); Partial Thromboplastin Time 32.5 sec (23.64-32.05)
[2019-11-03 22:18] LABS: Albumin 3.2 g/dL (3.4-5.0); Anion Gap 5 (5-15); BUN/Creatinine Ratio 13.4; Blood Urea Nitrogen 20 mg/dL (7-18); Calcium 8.1 mg/dL (8.5-10.1); Carbon Dioxide 24 mmol/L (21-32); Chloride 108 mmol/L (98-107); GFR African American 59 mL/min; GFR Non-African American 48 mL/min; Glucose 99 mg/dL (74-106); Potassium 4.1 mmol/L (3.5-5.1); Sodium 137 mmol/L (136-145)
[2019-11-03 22:18] LABS: Urine Bacteria NONE SEEN /hpf (None Seen); Urine Blood Negative /uL (Negative); Urine Specific Gravity 1.002 (1.001-1.035); Urine WBC 1 /hpf (0 - 3)
[2019-11-03 22:23] LABS: Alanine Aminotransferase 25 U/L (16-61); Alkaline Phosphatase 128 U/L (45-117); Aspartate Aminotransferase 21 U/L (15-37); Bilirubin, Total 0.5 mg/dL (0.2-1.0); Total Protein 6.5 g/dL (6.4-8.2)
[2019-11-03 23:10] LABS: Band Neutrophils % (manual) 3; Lymphocytes % (manual) 10 (10.0-50.0); Metamyelocytes % 4; Monocytes % (manual) 18 (0-12); Myelocytes % 1
[2019-11-04] VITALS (7 sets, daily range): BP systolic 125–132; BP diastolic 64–113
[2019-11-04] MEDS ORDERED: DOXYCYCLINE 100MG/250ML 250 ML IV ONE
[2019-11-04] MEDS ORDERED: SODIUM CHLORIDE 0.9% 1,000 ML IV ONE
[2019-11-04] MEDS ORDERED: SODIUM CHLORIDE 0.9% 1,000 ML IV SCH (00:25)
[2019-11-04] MEDS ORDERED: ACETAMINOPHEN 325 MG TAB PO PRN (00:30)
[2019-11-04] MEDS ORDERED: TEMAZEPAM 15 MG CAP PO PRN (00:30)
[2019-11-04] MEDS ORDERED: ONDANSETRON HCL 4 MG/2 ML VIAL IV PRN (00:30)
[2019-11-04] MEDS ORDERED: NITROGLYCERIN 0.4 MG SL TAB SL PRN (00:45)
[2019-11-04] MEDS ORDERED: MORPHINE SULF INJ 2 MG/ML SYRINGE 1ML IV PRN (00:45)
[2019-11-04] MEDS ORDERED: GABAPENTIN 300 MG CAP PO ONE (01:15)
[2019-11-04] MEDS ORDERED: GABAPENTIN 300 MG CAP ONE (01:21)
[2019-11-04 04:26] LABS: CRP High Sensitivity 0.19 mg/dL (< 0.3); Magnesium 1.8 mg/dL (1.6-2.6)
[2019-11-04] MEDS ORDERED: ALBUTEROL SULF HFA 90MCG INH 200DOSE IN SCH (06:00)
[2019-11-04] MEDS ORDERED: ASCORBIC ACID 1,000 MG TAB PO SCH (10:00)
[2019-11-04] MEDS ORDERED: levoFLOXacin 500MG 100 ML IV ONE (10:00)
[2019-11-04] MEDS ORDERED: CHOLECALCIFEROL (VITD3) 1,000IU=25mCg TAB PO SCH (10:00)
[2019-11-04] MEDS: PANTOPRAZOLE 40 MG TAB PO SCH (11:28)
[2019-11-04] MEDS: OSELTAMIVIR 30 MG CAP PO SCH (11:28)
[2019-11-04] MEDS: FINASTERIDE 5 MG TAB PO SCH (11:28)
[2019-11-04] MEDS ORDERED: LEVOTHYROXINE SODIUM 50 MCG TAB PO ONE (11:30)
[2019-11-04] MEDS: ALBUTEROL SULF 2.5 MG/0.5ML(0.5%) NEB SOLN NEB SCH ×2 (12:00→18:44)
[2019-11-04] MEDS: IPRATROPIUM BROM 0.5 MG/2.5ML INH SOL NEB SCH ×2 (12:00→18:44)
[2019-11-05 05:00] VITALS: BP 106/45
[2019-11-05] MEDS: ALBUTEROL SULF 2.5 MG/0.5ML(0.5%) NEB SOLN NEB SCH ×3 (05:50→18:13)
[2019-11-05] MEDS: IPRATROPIUM BROM 0.5 MG/2.5ML INH SOL NEB SCH ×3 (05:50→18:13)
[2019-11-05] MEDS: LEVOTHYROXINE SODIUM 50 MCG TAB PO SCH (06:17)
[2019-11-05 06:38] LABS: Hematocrit 40.3 % (41.0-53.0); Hemoglobin 12.9 g/dL (13.5-17.5); Mean Corpuscular Hemoglobin 27.2 pg (28.0-32.0); Platelet Count (auto) 127 10^3/uL (140-450); Red Blood Cells 4.74 10^6/uL (4.5-5.90); Red Cell Distribution Width 17.4 % (11.8-14.3); White Blood Cell 28.6 10^3/uL (4.4-10.8)
[2019-11-05 06:54] LABS: Albumin 3.5 g/dL (3.4-5.0); BUN/Creatinine Ratio 15.7; Calcium 8.9 mg/dL (8.5-10.1); Potassium 4.6 mmol/L (3.5-5.1)
[2019-11-05 06:57] LABS: Bilirubin, Total 0.6 mg/dL (0.2-1.0); Total Protein 6.9 g/dL (6.4-8.2)
[2019-11-05 07:07] LABS: Basophils % (manual) 0 (0.0-2.0); Blast Cells 0; Metamyelocytes % 0; Myelocytes % 0; Promyelocytes % 0; Reactive Lymphocytes 0
[2019-11-05 08:18] LABS: Band Neutrophils % (manual) 2; Eosinophils % (manual) 1 (0-7); Lymphocytes % (manual) 11 (10.0-50.0); Monocytes % (manual) 20 (0-12)
[2019-11-05 09:04] VITALS: BP 113/58
[2019-11-05] MEDS ORDERED: levoFLOXacin 250MG 50 ML IV SCH (10:00)
[2019-11-05] MEDS ORDERED: LORazepam 2MG/ML-1ML VIAL IV PRN (10:15)
[2019-11-05] MEDS ORDERED: LORazepam 2MG/ML-1ML VIAL IV ONE (10:15)
[2019-11-05] MEDS ORDERED: levoFLOXacin 500MG 100 ML IV ONE (10:15)
[2019-11-05] MEDS: FINASTERIDE 5 MG TAB PO SCH (10:41)
[2019-11-05] MEDS: PANTOPRAZOLE 40 MG TAB PO SCH (10:41)
[2019-11-05] MEDS: OSELTAMIVIR 30 MG CAP PO SCH (11:35)
[2019-11-05 12:49] VITALS: BP 105/60
[2019-11-05 16:55] VITALS: BP 110/65
[2019-11-05] MEDS: GABAPENTIN 100 MG CAP PO SCH (21:32)
[2019-11-05 22:00] VITALS: BP 115/73
[2019-11-06 05:00] VITALS: BP 109/64
[2019-11-06 05:26] LABS: Hemoglobin 12.4 g/dL (13.5-17.5); Mean Corpuscular Hgb Conc. 31.8 g/dL (32.0-36.0); Mean Corpuscular Volume 84.8 fL (80.0-100.0); Platelet Count (auto) 116 10^3/uL (140-450)
[2019-11-06 05:40] LABS: Basophils % (manual) 0 (0.0-2.0); Blast Cells 0; Eosinophils % (manual) 0 (0-7); Metamyelocytes % 0; Promyelocytes % 0; Reactive Lymphocytes 0
[2019-11-06 05:54] LABS: BUN/Creatinine Ratio 17.3; Potassium 4.3 mmol/L (3.5-5.1)
[2019-11-06] MEDS: LEVOTHYROXINE SODIUM 50 MCG TAB PO SCH (06:17)
[2019-11-06] MEDS: IPRATROPIUM BROM 0.5 MG/2.5ML INH SOL NEB SCH ×2 (07:27→12:14)
[2019-11-06] MEDS: ALBUTEROL SULF 2.5 MG/0.5ML(0.5%) NEB SOLN NEB SCH ×2 (07:27→12:14)
[2019-11-06 07:48] LABS: Band Neutrophils % (manual) 3; Lymphocytes % (manual) 12 (10.0-50.0); Monocytes % (manual) 14 (0-12); Myelocytes % 2
[2019-11-06 09:00] VITALS: BP 115/61
[2019-11-06] MEDS ORDERED: levoFLOXacin 500MG 100 ML IV SCH (10:00)
[2019-11-06] MEDS: GABAPENTIN 100 MG CAP PO SCH (11:07)
[2019-11-06] MEDS: OSELTAMIVIR 30 MG CAP PO SCH (11:07)
[2019-11-06] MEDS: PANTOPRAZOLE 40 MG TAB PO SCH (11:07)
[2019-11-06] MEDS: FINASTERIDE 5 MG TAB PO SCH (11:07)
[2019-11-06 11:53] VITALS: BP 115/61
[2019-11-06 12:47] VITALS: BP 113/66
== END 2019-11-06 13:25 | disposition home or self-care (01) | DRG 871 ==
LOC: EDBD 20:50 → ER 21:00 → TELE 21:01 → TELE-E-ADS 11-04 02:45 → TELE-CENTR 11-04 13:32
PROVIDERS: ADMIT Nurse Practitioner; ATTEND Internal Medicine
DX: A41.9 Sepsis, unspecified organism (principal); J18.9 Pneumonia, unspecified organism; N17.0 Acute kidney failure with tubular necrosis; J10.00 Influenza due to other identified influenza virus with unspecified type of pneumonia; I69.354 Hemiplegia and hemiparesis following cerebral infarction affecting left non-dominant side; J44.0 Chronic obstructive pulmonary disease with (acute) lower respiratory infection; N18.9 Chronic kidney disease, unspecified; I70.0 Atherosclerosis of aorta; I13.10 Hypertensive heart and chronic kidney disease without heart failure, with stage 1 through stage 4 chronic kidney disease, or unspecified chronic kidney disease; Z99.81 Dependence on supplemental oxygen; Z88.6 Allergy status to analgesic agent; Z20.828 Contact with and (suspected) exposure to other viral communicable diseases
CPT/HCPCS: 36415; 71045; 80048; 80053; 81001; 82728; 83605; 83615; 83735; 83880; 84443; 84484; 85007; 85027; 85379; 85610; 85730; 86141; 86710; 87040; 87070; 87804; 87880; 93005; 93970; 94640; G0378; G9035; J1956

== ENCOUNTER → 2019-11-11 | Outpatient (CLI) | payer MEDICARE ==
[2019-11-11 08:58] LABS: Mean Corpuscular Hemoglobin 26.6 pg (28.0-32.0); Mean Corpuscular Volume 83.8 fL (80.0-100.0)
[2019-11-11 09:00] LABS: Hematocrit 40.4 % (41.0-53.0); Hemoglobin 12.8 g/dL (13.5-17.5); Mean Corpuscular Hgb Conc. 31.8 g/dL (32.0-36.0); Platelet Count (auto) 148 10^3/uL (140-450); Red Blood Cells 4.82 10^6/uL (4.5-5.90)
[2019-11-11 11:52] LABS: White Blood Cell 39.3 10^3/uL (4.4-10.8)
[2019-11-11 11:54] LABS: Band Neutrophils % (manual) 0; Basophils % (manual) 0 (0.0-2.0); Blast Cells 0; Eosinophils % (manual) 0 (0-7); Metamyelocytes % 0; Myelocytes % 0; Promyelocytes % 0; Reactive Lymphocytes 0
[2019-11-11 12:25] LABS: Lymphocytes % (manual) 7 (10.0-50.0); Monocytes % (manual) 15 (0-12)
== END | disposition home or self-care (01) ==
LOC: LAB 08:33
PROVIDERS: ATTEND Internal Medicine
DX: J18.9 Pneumonia, unspecified organism (principal)
CPT/HCPCS: 36415; 85007; 85027

== ENCOUNTER 2019-12-18 13:13 | Inpatient (IN) | payer MEDICARE ==
[~2019-12-18] VITALS: Ht 162.6 cm; Wt 46.1 kg
[2019-12-18] MEDS ORDERED: SODIUM CHLORIDE 0.9% 1,000 ML IV ONE (13:21)
[2019-12-18] MEDS ORDERED: DexAMETHasone SOD PHOS 10MG/1ML VIAL INJ IV ONE (13:30)
[2019-12-18] MEDS ORDERED: cefTRIAXone 1GM/50ML D5W 50 ML IV ONE (14:15)
[2019-12-18] MEDS ORDERED: AZITHROMYCIN 500MG/ 250ML 250 ML IV ONE (14:15)
[2019-12-18] MEDS ORDERED: ZINC SULFATE 220mg CAP or TAB PO ONE (14:15)
[2019-12-18] MEDS ORDERED: ASCORBIC ACID 500 MG TAB PO ONE (14:15)
[2019-12-18 14:33] LABS: Hemoglobin 13.3 g/dL (13.5-17.5); Platelet Count (auto) 181 10^3/uL (140-450)
[2019-12-18 14:36] LABS: Hematocrit 42.1 % (41.0-53.0); Mean Corpuscular Hemoglobin 26.8 pg (28.0-32.0); Mean Corpuscular Hgb Conc. 31.6 g/dL (32.0-36.0); Red Blood Cells 4.95 10^6/uL (4.5-5.90); Red Cell Distribution Width 17.9 % (11.8-14.3)
[2019-12-18 14:46] LABS: Band Neutrophils % (manual) 0; Basophils % (manual) 0 (0.0-2.0); Blast Cells 0; Eosinophils % (manual) 0 (0-7); Promyelocytes % 0; Reactive Lymphocytes 0; White Blood Cell 42.3 10^3/uL (4.4-10.8)
[2019-12-18 14:49] LABS: Albumin 3.7 g/dL (3.4-5.0); Anion Gap 5 (5-15); Blood Urea Nitrogen 20 mg/dL (7-18); Carbon Dioxide 27 mmol/L (21-32); Chloride 108 mmol/L (98-107); Glucose 103 mg/dL (74-106); Potassium 3.8 mmol/L (3.5-5.1); Sodium 140 mmol/L (136-145)
[2019-12-18 14:53] LABS: INR 1.18 (0.9-1.15); Partial Thromboplastin Time 33.6 sec (23.0-31.2)
[2019-12-18 14:57] LABS: Alanine Aminotransferase 27 U/L (16-61); Alkaline Phosphatase 242 U/L (45-117); Aspartate Aminotransferase 25 U/L (15-37); BUN/Creatinine Ratio 12.4; Bilirubin, Total 0.5 mg/dL (0.2-1.0); CRP High Sensitivity 1.77 mg/dL (< 0.3); GFR African American 54 mL/min; GFR Non-African American 44 mL/min; Lactate Dehydrogenase 198 U/L (87-241); Total Protein 7.5 g/dL (6.4-8.2)
[2019-12-18] MEDS ORDERED: SODIUM CHLORIDE 0.9% 1,000 ML IV SCH (16:12)
[2019-12-18] MEDS ORDERED: PROMETHAZINE HCL 25 MG/ML 1ML IV PRN (16:15)
[2019-12-18] MEDS ORDERED: ACETAMINOPHEN 500 MG TAB PO PRN (16:15)
[2019-12-18] MEDS ORDERED: ALBUTEROL SULF 2.5 MG/0.5ML(0.5%) NEB SOLN NEB PRN (16:15)
[2019-12-18] MEDS ORDERED: NITROGLYCERIN 0.4 MG SL TAB SL PRN (16:15)
[2019-12-18] MEDS ORDERED: VANCOMYCIN PER PHARMACY 0 MG IV SCH (16:15)
[2019-12-18] MEDS ORDERED: traMADol HCL 50 MG TAB PO PRN (16:15)
[2019-12-18] MEDS ORDERED: LACTULOSE 20Gm/30ML SOLN PO PRN (16:15)
[2019-12-18] MEDS ORDERED: PIPERACILLIN-TAZOB 3.375GM 100 ML IV ONE (16:15)
[2019-12-18] MEDS ORDERED: MORPHINE SULF INJ 2 MG/ML SYRINGE 1ML IV PRN (16:15)
[2019-12-18] MEDS ORDERED: VANCOMYCIN 1GM/250ML 250 ML IV ONE (16:15)
[2019-12-18] MEDS: methylPREDNISolone SOD SUCC 40 MG/ML VL IV SCH (16:54)
[2019-12-18 17:17] LABS: Urine Bacteria NONE SEEN /hpf (None Seen); Urine Blood Negative /uL (Negative); Urine Specific Gravity 1.005 (1.001-1.035); Urine WBC 1 /hpf (0 - 3)
[2019-12-18] MEDS: IPRATROPIUM BROM 0.5 MG/2.5ML INH SOL NEB SCH ×2 (18:15→23:50)
[2019-12-18] MEDS: ALBUTEROL SULF 2.5 MG/0.5ML(0.5%) NEB SOLN NEB SCH ×2 (18:15→23:50)
[2019-12-18 18:58] VITALS: BP 114/60
[2019-12-18 21:26] LABS: Lymphocytes % (manual) 4 (10.0-50.0); Metamyelocytes % 2; Monocytes % (manual) 16 (0-12); Myelocytes % 1
[2019-12-18 21:47] VITALS: BP 125/72
[2019-12-18 22:00] VITALS: BP 125/72
[2019-12-18] MEDS ORDERED: BUDESONIDE (INHALATION) 180 MCG IH IN SCH (22:00)
[2019-12-18] MEDS: LINEZOLID 600MG/300ML 300 ML IV SCH (23:04)
[2019-12-19] MEDS: PIPERACILLIN-TAZOB 3.375GM 100 ML IV SCH ×4 (01:10→21:06)
[2019-12-19] MEDS: methylPREDNISolone SOD SUCC 40 MG/ML VL IV SCH ×2 (04:15→05:01)
[2019-12-19 05:00] VITALS: BP 144/75
[2019-12-19] MEDS: ALBUTEROL SULF 2.5 MG/0.5ML(0.5%) NEB SOLN NEB SCH ×3 (06:24→18:17)
[2019-12-19] MEDS: IPRATROPIUM BROM 0.5 MG/2.5ML INH SOL NEB SCH ×3 (06:24→18:17)
[2019-12-19 09:04] VITALS: BP 130/50
[2019-12-19 09:30] LABS: Hematocrit 40.9 % (41.0-53.0); Hemoglobin 12.7 g/dL (13.5-17.5); Platelet Count (auto) 187 10^3/uL (140-450); Red Blood Cells 4.87 10^6/uL (4.5-5.90); Red Cell Distribution Width 16.8 % (11.8-14.3)
[2019-12-19] MEDS: LINEZOLID 600MG/300ML 300 ML IV SCH (09:40)
[2019-12-19] MEDS: ENOXAPARIN SOD 30 MG/0.3 ML SYRINGE SC SCH (09:40)
[2019-12-19 09:45] LABS: Albumin 3.3 g/dL (3.4-5.0); Calcium 8.9 mg/dL (8.5-10.1); Potassium 3.5 mmol/L (3.5-5.1)
[2019-12-19 09:47] LABS: Basophils % (manual) 0 (0.0-2.0); Blast Cells 0; Eosinophils % (manual) 0 (0-7); Promyelocytes % 0; Reactive Lymphocytes 0
[2019-12-19 09:48] LABS: BUN/Creatinine Ratio 11.3; Bilirubin, Total 0.5 mg/dL (0.2-1.0)
[2019-12-19] MEDS ORDERED: CHOLECALCIFEROL (VITD3) 2,000 UNIT CAP PO SCH (10:00)
[2019-12-19] MEDS ORDERED: ZINC SULFATE 220mg CAP or TAB PO SCH (10:00)
[2019-12-19] MEDS ORDERED: ASCORBIC ACID 1,000 MG TAB PO SCH (10:00)
[2019-12-19] MEDS ORDERED: AZITHROMYCIN 500MG/ 250ML 250 ML IV SCH (10:00)
[2019-12-19] MEDS ORDERED: ENOXAPARIN SOD 40 MG/0.4 ML SYRINGE SC SCH (10:00)
[2019-12-19] MEDS ORDERED: ASCORBIC ACID 500 MG TAB PO SCH (10:16)
[2019-12-19] MEDS ORDERED: MECL25TA18 PO (10:44)
[2019-12-19] MEDS ORDERED: BACL10TA PO (10:44)
[2019-12-19] MEDS ORDERED: GABA100C9 PO (10:44)
[2019-12-19] MEDS ORDERED: LACT10SO70 PO (10:44)
[2019-12-19] MEDS: CHOLECALCIFEROL (VITD3) 1,000UNIT=25mCg TAB PO SCH (12:13)
[2019-12-19 13:00] VITALS: BP 111/65
[2019-12-19 13:14] LABS: Band Neutrophils % (manual) 10; Lymphocytes % (manual) 2 (10.0-50.0); Metamyelocytes % 2; Monocytes % (manual) 9 (0-12); Myelocytes % 3
[2019-12-19] MEDS ORDERED: DICY20TA PO (14:57)
[2019-12-19] MEDS: GABAPENTIN 100 MG CAP PO SCH ×2 (16:12→22:05)
[2019-12-19 17:00] VITALS: BP 104/60
[2019-12-19 22:00] VITALS: BP 106/64
[2019-12-20] MEDS: ALBUTEROL SULF 2.5 MG/0.5ML(0.5%) NEB SOLN NEB SCH ×4 (00:44→18:44)
[2019-12-20] MEDS: IPRATROPIUM BROM 0.5 MG/2.5ML INH SOL NEB SCH ×4 (00:44→18:37)
[2019-12-20 05:00] VITALS: BP 101/62
[2019-12-20] MEDS: PIPERACILLIN-TAZOB 3.375GM 100 ML IV SCH ×3 (05:40→22:45)
[2019-12-20] MEDS: GABAPENTIN 100 MG CAP PO SCH ×3 (05:40→22:45)
[2019-12-20 07:46] LABS: Hemoglobin 11.3 g/dL (13.5-17.5)
[2019-12-20 07:52] LABS: Hematocrit 36.7 % (41.0-53.0); Mean Corpuscular Hemoglobin 26.2 pg (28.0-32.0); Mean Corpuscular Hgb Conc. 30.9 g/dL (32.0-36.0); Mean Corpuscular Volume 84.9 fL (80.0-100.0); Platelet Count (auto) 164 10^3/uL (140-450); Red Blood Cells 4.32 10^6/uL (4.5-5.90); Red Cell Distribution Width 16.9 % (11.8-14.3)
[2019-12-20 07:57] LABS: White Blood Cell 48.3 10^3/uL (4.4-10.8)
[2019-12-20 07:58] LABS: Basophils % (manual) 0 (0.0-2.0); Blast Cells 0; Eosinophils % (manual) 0 (0-7); Promyelocytes % 0; Reactive Lymphocytes 0
[2019-12-20 08:07] LABS: Calcium 8.6 mg/dL (8.5-10.1); Potassium 3.7 mmol/L (3.5-5.1)
[2019-12-20 08:10] LABS: BUN/Creatinine Ratio 10.8
[2019-12-20 08:20] LABS: Band Neutrophils % (manual) 1; Lymphocytes % (manual) 6 (10.0-50.0); Metamyelocytes % 2; Monocytes % (manual) 23 (0-12); Myelocytes % 1
[2019-12-20 09:00] VITALS: BP 119/70
[2019-12-20] MEDS: ENOXAPARIN SOD 30 MG/0.3 ML SYRINGE SC SCH (10:21)
[2019-12-20] MEDS: predniSONE 20 MG TAB PO SCH (10:21)
[2019-12-20] MEDS: CHOLECALCIFEROL (VITD3) 1,000UNIT=25mCg TAB PO SCH (10:21)
[2019-12-20] MEDS: FINASTERIDE 5 MG TAB PO SCH (10:21)
[2019-12-20 13:00] VITALS: BP 118/61
[2019-12-20 17:00] VITALS: BP 137/80
[2019-12-20 22:00] VITALS: BP 106/65
[2019-12-20] MEDS: TEMAZEPAM 15 MG CAP PO PRN (22:46)
[2019-12-21] MEDS: ALBUTEROL SULF 2.5 MG/0.5ML(0.5%) NEB SOLN NEB SCH ×4 (00:21→18:22)
[2019-12-21] MEDS: IPRATROPIUM BROM 0.5 MG/2.5ML INH SOL NEB SCH ×4 (00:21→18:22)
[2019-12-21 05:00] VITALS: BP 112/59
[2019-12-21] MEDS: GABAPENTIN 100 MG CAP PO SCH ×4 (06:00→22:09)
[2019-12-21] MEDS: PIPERACILLIN-TAZOB 3.375GM 100 ML IV SCH ×3 (06:13→22:09)
[2019-12-21 09:00] VITALS: BP 109/65
[2019-12-21] MEDS: FINASTERIDE 5 MG TAB PO SCH (09:49)
[2019-12-21] MEDS: ENOXAPARIN SOD 30 MG/0.3 ML SYRINGE SC SCH (09:49)
[2019-12-21] MEDS: predniSONE 20 MG TAB PO SCH (09:50)
[2019-12-21] MEDS: CHOLECALCIFEROL (VITD3) 1,000UNIT=25mCg TAB PO SCH (10:50)
[2019-12-21 13:00] VITALS: BP 113/63
[2019-12-21 17:00] VITALS: BP 133/84
[2019-12-21 18:18] VITALS: BP 133/84
[2019-12-21 22:00] VITALS: BP 114/69
[2019-12-21] MEDS: TEMAZEPAM 15 MG CAP PO PRN (22:16)
[2019-12-22] MEDS: ALBUTEROL SULF 2.5 MG/0.5ML(0.5%) NEB SOLN NEB SCH ×5 (00:03→23:35)
[2019-12-22] MEDS: IPRATROPIUM BROM 0.5 MG/2.5ML INH SOL NEB SCH ×5 (00:03→23:35)
[2019-12-22] MEDS: GABAPENTIN 100 MG CAP PO SCH ×3 (05:27→21:44)
[2019-12-22] MEDS: PIPERACILLIN-TAZOB 3.375GM 100 ML IV SCH ×3 (05:27→21:45)
[2019-12-22 06:27] VITALS: BP 110/69
[2019-12-22 07:02] LABS: Mean Corpuscular Hgb Conc. 30.7 g/dL (32.0-36.0)
[2019-12-22 07:06] LABS: Hematocrit 36.4 % (41.0-53.0); Hemoglobin 11.2 g/dL (13.5-17.5); Mean Corpuscular Hemoglobin 26.2 pg (28.0-32.0); Mean Corpuscular Volume 85.5 fL (80.0-100.0); Platelet Count (auto) 185 10^3/uL (140-450); Red Blood Cells 4.26 10^6/uL (4.5-5.90); Red Cell Distribution Width 17.5 % (11.8-14.3)
[2019-12-22 07:26] LABS: White Blood Cell 68.1 10^3/uL (4.4-10.8)
[2019-12-22 07:28] LABS: Basophils % (manual) 0 (0.0-2.0); Blast Cells 0; Eosinophils % (manual) 0 (0-7); Promyelocytes % 0; Reactive Lymphocytes 0
[2019-12-22 07:43] LABS: Potassium 3.9 mmol/L (3.5-5.1)
[2019-12-22 07:53] LABS: BUN/Creatinine Ratio 14.5; Bilirubin, Total 0.5 mg/dL (0.2-1.0); Calcium 8.7 mg/dL (8.5-10.1); Total Protein 6.3 g/dL (6.4-8.2)
[2019-12-22 07:57] LABS: Band Neutrophils % (manual) 2; Lymphocytes % (manual) 7 (10.0-50.0); Metamyelocytes % 2; Monocytes % (manual) 14 (0-12); Myelocytes % 1
[2019-12-22 09:00] VITALS: BP 138/75
[2019-12-22] MEDS: predniSONE 20 MG TAB PO SCH (09:20)
[2019-12-22] MEDS: FINASTERIDE 5 MG TAB PO SCH (09:21)
[2019-12-22] MEDS: ENOXAPARIN SOD 30 MG/0.3 ML SYRINGE SC SCH (09:21)
[2019-12-22 13:00] VITALS: BP 117/79
[2019-12-22] MEDS ORDERED: BACLOFEN 10 MG TAB PO ONE (16:45)
[2019-12-22 17:00] VITALS: BP 136/79
[2019-12-22] MEDS: BACLOFEN 10 MG TAB PO SCH (21:44)
[2019-12-22] MEDS: TEMAZEPAM 15 MG CAP PO PRN (21:47)
[2019-12-22 22:00] VITALS: BP 108/59
[2019-12-23 05:00] VITALS: BP 108/60
[2019-12-23] MEDS: ALBUTEROL SULF 2.5 MG/0.5ML(0.5%) NEB SOLN NEB SCH ×2 (06:07→12:10)
[2019-12-23] MEDS: IPRATROPIUM BROM 0.5 MG/2.5ML INH SOL NEB SCH ×2 (06:07→12:10)
[2019-12-23 06:09] LABS: Hematocrit 36.3 % (41.0-53.0); Hemoglobin 11.2 g/dL (13.5-17.5); Mean Corpuscular Hemoglobin 26.2 pg (28.0-32.0); Mean Corpuscular Hgb Conc. 30.8 g/dL (32.0-36.0); Mean Corpuscular Volume 85.2 fL (80.0-100.0); Platelet Count (auto) 181 10^3/uL (140-450); Red Blood Cells 4.26 10^6/uL (4.5-5.90); Red Cell Distribution Width 17.2 % (11.8-14.3)
[2019-12-23] MEDS: PIPERACILLIN-TAZOB 3.375GM 100 ML IV SCH (06:10)
[2019-12-23] MEDS: GABAPENTIN 100 MG CAP PO SCH (06:11)
[2019-12-23] MEDS: BACLOFEN 10 MG TAB PO SCH (06:11)
[2019-12-23 06:23] LABS: Calcium 8.9 mg/dL (8.5-10.1); Potassium 3.8 mmol/L (3.5-5.1)
[2019-12-23 06:24] LABS: White Blood Cell 68.8 10^3/uL (4.4-10.8)
[2019-12-23 06:25] LABS: Basophils % (manual) 0 (0.0-2.0); Blast Cells 0; Eosinophils % (manual) 0 (0-7); Promyelocytes % 0; Reactive Lymphocytes 0
[2019-12-23 06:32] LABS: BUN/Creatinine Ratio 14.4
[2019-12-23 08:00] VITALS: BP 115/65
[2019-12-23 08:16] LABS: Band Neutrophils % (manual) 4; Lymphocytes % (manual) 7 (10.0-50.0); Metamyelocytes % 3; Myelocytes % 1
[2019-12-23 08:17] LABS: Monocytes % (manual) 19 (0-12)
[2019-12-23] MEDS: FINASTERIDE 5 MG TAB PO SCH (09:23)
[2019-12-23] MEDS ORDERED: predniSONE 20 MG TAB PO SCH (10:00)
[2019-12-23 12:00] VITALS: BP 112/62
[2019-12-23 12:08] VITALS: BP 112/62
== END 2019-12-23 13:40 | disposition home or self-care (01) | DRG 191 ==
LOC: EDUNIT# 13:13 → ER 13:13 → EDBD 13:13 → TELE 13:14 → TELE-CENTR 21:47
PROVIDERS: ADMIT Internal Medicine; ATTEND Internal Medicine
DX: J44.1 Chronic obstructive pulmonary disease with (acute) exacerbation (principal); C95.90 Leukemia, unspecified not having achieved remission; J96.10 Chronic respiratory failure, unspecified whether with hypoxia or hypercapnia; I69.854 Hemiplegia and hemiparesis following other cerebrovascular disease affecting left non-dominant side; Z68.1 Body mass index [BMI] 19.9 or less, adult; I12.9 Hypertensive chronic kidney disease with stage 1 through stage 4 chronic kidney disease, or unspecified chronic kidney disease; N18.3 Chronic kidney disease, stage 3 (moderate); R79.1 Abnormal coagulation profile; N40.0 Benign prostatic hyperplasia without lower urinary tract symptoms; Z82.3 Family history of stroke; Z87.891 Personal history of nicotine dependence; Z88.6 Allergy status to analgesic agent; Z88.5 Allergy status to narcotic agent; Z88.8 Allergy status to other drugs, medicaments and biological substances; Z20.828 Contact with and (suspected) exposure to other viral communicable diseases
CPT/HCPCS: 36415; 71045; 78582; 80048; 80053; 81001; 82728; 83605; 83615; 83880; 84484; 85007; 85027; 85379; 85610; 85730; 86141; 87040; 87070; 87081; 87086; 87804; 87880; 93970; 94640; 99291; G0378; J0696; J1100; J2543